=== PATIENT | female | born 2000 | race American Indian/Alaskan Native ===

== ENCOUNTER 2020-06-28 23:27 | Inpatient (IN) | payer BC, MEDICAID ==
[2020-06-29] MEDS ORDERED: HYDROcodone/ACETAMINOPHEN 10-325MG TAB PO PRN (01:27)
--- NOTE | 2020-06-29 02:33 | History and Physical Report ---
History of Present Illness Date of examination: 06/29/20 Date of admission: 06/29/2020 Chief complaint: my water broke; I am having an outbreak History of present illness: Pt presents c/o losing mucus plug and as per triage nurse shows signs of SROM with possible mec. Pt also has been in triage for several hours being monitored for cervical change and has had dilation to 2cm form 1cm. 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 While no visible lesions are seen pt state her sx are typical for an outbreak for her. I advised of need for c/s for possible hsv 2 outbreak. Pt expressed understanding stating this is what she was counseled in the office. EDC Confirmation: 06/28/2020 Gestational Age: 19 4/7 weeks Past History : 1 Term Births: 0 Premature Births: 0 Living Children: 0 Para: 0 Mult. Births: 0 Prev : 0 Prev. attempt? 0 Aborta: 0 Elect. Ab: 0 Spont. 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 of genital herpes: yes Partner hx. of genital herpes: no Rash, Viral, or Febrile illness since last LMP? no Varicella/Chicken Pox Status: Immunized Genetic History Congenital Heart Defect: Mom: no Dad: no Jeanmarie Disease: Mom: no Dad: no Thalassemia Mom: no Dad: no Neural Tube Defect Mom: no Dad: no Down's Syndrome Mom: no Dad: no Brady-Sachs Mom: no Dad: no Sickle Cell Disease/Trait Mom: no Dad: no Hemophilia Mom: no Dad: no Muscular Dystrophy Mom: no Dad: no Cystic Fibrosis Mom: no Dad: no [place] Chorea Mom: no Dad: no Mental Retardation Mom: no Dad: no Fragile X Mom: no Dad: no Other Genetic/Chromosomal Disorder Mom: yes Dad: no Comments: SMA carrier Child w/other defect Mom: no Dad: no Enviromental Exposures Xray Exposure: no Medication, drug, or alcohol use since LMP: no Chemical/Other Exposure: no Exposure to Cat Liter: no Hx of Parvovirus (Fifth Disease): no Occupational Exposure to Children: none Current Allergies: No known allergies Laboratory Results Past History Past Medical History: asthma, other (hsv2) Past Surgical History: no surgical history Social history: no significant social history, single - Obstetrical History Expected Date of Delivery: 06/28/20 Actual Gestation: 40 Week(s) 1 Day(s) : 1 Medications and Allergies Allergies Allergy/AdvReac Type Severity Reaction Status Date / Time No Known Allergies Allergy Verified 06/29/20 01:31 Active Meds: Active Medications Hydrocodone Bitart/Acetaminophen (Medon 10/325) 1 each PO Q4H PRN PRN Reason: Pain, Moderate (4-6) - Vital Signs Vital signs: Vital Signs Temp Pulse Resp BP Pulse Ox 98.3 F 101 H 20 113/71 100 06/28/20 23:49 06/28/20 23:49 06/28/20 23:49 06/28/20 23:49 06/28/20 23:49 Temp Pulse Resp BP Pulse Ox 98.3 F 70 20 101/62 100 06/28/20 23:49 06/29/20 01:50 06/28/20 23:49 06/29/20 01:09 06/29/20 01:50 - Physical Exam Lungs: Positive: Normal air movement Abdomen: Positive: normal appearance, normal bowel sounds Genitourinary (Female): Positive: normal external genitalia, normal perenium, other (no lesions noted as per triage nurse) Results All other labs normal. Assessment and Plan - Patient Problems (1) 40 weeks gestation of Current Visit: Yes Status: Acute (2) HSV (herpes simplex virus) infection Current Visit: Yes Status: Acute Plan to address problem: -with SROM and latent labor present will proceed with primary c/s as pt c/o acitve out break. no visible lesions noted but pt is symptomatic -all risk, benefits and alternatives d/w pt and questions were encouraged. Pt expressed no questions at this time. (3) SROM (spontaneous rupture of membranes) Current Visit: Yes Status: Acute Plan to address problem: -?SROM witll proceed with primary c/s due to active hsv 2 outbreak -pt expressed understanding and agrees with plan of care.
[2020-06-29] MEDS ORDERED: FAMOTIDINE 20 MG/2 ML INJ IV ONE (02:42)
[2020-06-29] MEDS ORDERED: METOCLOPRAMIDE 10 MG/2 ML INJ IV ONE (02:42)
[2020-06-29] MEDS ORDERED: BICITRA ORAL LIQD 30ML PO ONE (02:42)
[2020-06-29] MEDS ORDERED: LACTATED RINGERS 1,000 ML IV SCH (03:00)
[2020-06-29] MEDS ORDERED: ceFAZolin/Water 2 GM/20 ML 2 GM/20 ML SYRINGE IV NR (03:00)
[2020-06-29] MEDS ORDERED: OXYTOCIN 20 UNIT/1000ML DRIP 20 UNITS/1,000 ML BAG IV SCH ×2 (03:00→06:00)
[2020-06-29 03:02] LABS: Basophils % (Auto) 0.4 % (0.0-1.8); Eosinophils # (Auto) 0.1 K/mm3 (0.0-0.4); Eosinophils % (Auto) 0.9 % (0.0-4.3); Lymphocytes # (Auto) 2.1 K/mm3 (1.2-5.4); Lymphocytes % (Auto) 25.4 % (13.4-35.0); Mean Corpuscular HGB Conc 37 % (30-34); Mean Corpuscular Volume 86 fl (79-97); Monocytes # (Auto) 0.8 K/mm3 (0.0-0.8); Monocytes % (Auto) 9.5 % (0.0-7.3); Platelet Count 200 K/mm3 (140-440); Red Blood Count 4.31 M/mm3 (3.65-5.03); Red Cell Distribution Width 13.7 % (13.2-15.2)
[2020-06-29] MEDS ORDERED: KETOROLAC 30 MG/1 ML INJ ONE (03:10)
[2020-06-29] MEDS ORDERED: OXYTOCIN 10 UNIT/1 ML INJ ONE (03:10)
[2020-06-29] MEDS ORDERED: DEXMEDETOMIDINE 200 MCG/2 ML VIAL IV ONE (03:10)
[2020-06-29] MEDS ORDERED: ONDANSETRON 4 MG/2 ML INJ ONE (03:10)
[2020-06-29] MEDS ORDERED: BUPIVACAINE/PF (0.5%) 5 MG/1 ML 30 ML VIAL INFILTRATI ONE (03:18)
[2020-06-29 03:20] LABS: Hematocrit 37.2 % (30.3-42.9); Hemoglobin 13.6 gm/dl (10.1-14.3)
[2020-06-29] MEDS ORDERED: NalbUPHINE 10 MG/1 ML INJ IV PRN (03:21)
[2020-06-29] MEDS ORDERED: NALOXONE 0.4 MG/1 ML INJ IV PRN ×2 (03:21→05:15)
[2020-06-29] MEDS ORDERED: PROMETHAZINE 25 MG TAB PO PRN (03:21)
[2020-06-29] MEDS ORDERED: ONDANSETRON 4 MG/2 ML INJ IV PRN (03:21)
[2020-06-29] MEDS ORDERED: diphenhydrAMINE 50 MG/ML VIAL IV PRN (03:21)
[2020-06-29] MEDS ORDERED: PROMETHAZINE 25 MG RECT SUPP PR PRN (03:21)
--- NOTE | 2020-06-29 03:23 | Anesthesia Consultation ---
Anesthesia Consult and Med Hx Date of service: 06/29/20 - Airway Anesthetic Teeth Evaluation: Good ROM Head & Neck: Adequate Mental/Hyoid Distance: Adequate Mallampati Class: Class II Intubation Access Assessment: Probably Good - Pulmonary Exam CTA: Yes - Cardiac Exam Cardiac Exam: RRR - Pre-Operative Health Status ASA Pre-Surgery Classification: ASA3 Proposed Anesthetic Plan: Spinal Nerve Block: TAP - Pulmonary Hx Smoking: Yes (THC) Hx Asthma: Yes (last attack during carries inhaler) COPD: No Hx Pneumonia: No Hx Sleep Apnea: No - Cardiovascular System Hx Hypertension: No - Central Nervous System Hx Seizures: No Hx Psychiatric Problems: Yes (dx anxiety and depression no meds) - Gastrointestinal Hx Gastroesophageal Reflux Disease: No - Endocrine Hx Renal Disease: No Hx End Stage Renal Disease: No Hx Hypothyroidism: No Hx Hyperthyroidism: No - Hematic Hx Anemia: No Hx Sickle Cell Disease: No - Other Systems Hx Alcohol Use: No
--- NOTE | 2020-06-29 03:24 | Anesthesia Day of Surgery ---
Anesthesia Day of Surgery - Day of Surgery Patient Examined: Yes Patient H&P Reviewed: Yes Patient is NPO: Yes Beta Blockers: No Cardiac Clearance: No Pulmonary Clearance: No Trevor's Test: N/A
--- NOTE | 2020-06-29 03:48 | Progress Note ---
Spinal Anesthesia Block - Spinal Anesthesia Block Start Time: 03:32 Stop Time: 03:42 Performed by:: YEVGENIY COLLINS (Silva Montoyae ARACELY) Procedure: Spinal anesthesia block is being performed for [C/S]. H&P, labs have been reviewed. Patient's questions and concerns have been answered. Informed consent has been performed. Timeout has was performed. Patient in sitting position on side of bed. Sterile prep and drape was performed. 3 mL 1% li docaine skin wheal at L [3]-L [4]. Needle introducer advanced. 25-gauge spinal needle advanced, [+] CSF [-] blood. [Marcaine 10.5mg and Precedex 10mcg] Spinal dose was given. All needles removed. Patient tolerated procedure well.
[2020-06-29] MEDS ORDERED: PHENYLEPHRINE/NS 1,000 MCG/10 ML SYRINGE (OR USE) IV ONE ×2 (03:51→04:39)
[2020-06-29] MEDS ORDERED: KETAMINE/STERILE WATER 50 MG/ML SYRINGE ONE (04:33)
[2020-06-29] MEDS ORDERED: WITCH HAZEL/ GLYCERIN PAD TP PRN (05:15)
[2020-06-29] MEDS ORDERED: LANOLIN/ZINC/DIMETHICONE (LANSINOH) 7 GM TP PRN (05:15)
--- NOTE | 2020-06-29 05:19 | Operative Report ---
Operative Report Operative Report: Date of procedure: 06/29/2020 Pre-operative diagnosis: 40 and 1 weeks gestation Spontaneous rupture of membranes Meconium Latent labor Active HSV-2 outbreak Post-operative diagnosis: Same plus nuchal and body cord x1 Procedure name(s): Primary low transverse section via Pfannenstiel skin incision Surgeon: Dr. Christine Epic Cupid Analyst: DANIELLE Anesthesia: Spinal EBL: 800 mL Urine output: 100 mL of clear urine out at the end of the procedure Fluids: 2400 mL Findings: Liveborn female weight 6 pounds 5 ounces Apgars of 8 and 9 at 1 and 5 minutes Grossly normal fallopian tubes and ovaries bilaterally Normal uterus Meconium stained fluid Nuchal cord x1 easily reduced body cord x1 easily reduced Indications: Patient presented with complaints of spontaneous rupture of membranes and signs of active herpes outbreak. Patient was examined and noted to have cervical change as well. Patient was advised of risk of transmission to the baby. Patient was advised of need for primary section. All risks benefits and alternatives were discussed with the patient including the risk for future sections. Procedure: Patient was taking to the operating room. Patient was then prepped and draped in sterile fashion after anesthesia was found to be adequate. A low transverse skin incision was made with the scalpel and carried down to the underlying layer of fascia with the Bovie. The fascia was then incised in the midline and this incision was extended bilaterally with the Bovie. The superior aspect of the fascia was grasped with Gamal clamps tented upward and dissected off of the anterior rectus muscles with the scalpel. In similar fashion the inferior aspect of the fascia was grasped with Gamal clamps tented upward and dissected off of the anterior rectus muscles. The rectus muscles were then bluntly divided in the midline. The peritoneum was identified and entered into sharply. The Maxwell retractor was placed. The bladder blade was placed. The bladder blade was replaced. A lower transverse uterine incision was made with the scalpel and extended bilaterally with the bandage scissors. Entry into the uterus yielded meconium-stained fluid. The 's head was then delivered atraumatically. Nuchal cord x1 was easily reduced. The anterior shoulder and rest of delivered without difficulty. Body cord x1 was easily reduced. The umbilical cord was clamped x2. The cord was cut. The infant was then placed in sterile bassinet. [The cord blood was collected.] The placenta was manually extracted in its entirety. The uterus was exteriorized and cleared of all clots and debris. The uterine incision was closed using 0 Vicryl in a running locking fashion. A second imbricating layer of the same suture was then created. The posterior cul-de-sac was copiously irrigated. The uterus was returned to the abdomen. The gutters were also irrigated. The anterior rectus muscles were reapproximated using 3-0 Vicryl. The anterior rectus fascia was reapproximated using 0 Vicryl in a running fashion. The subcuticular fat was r eapproximated using 2-0 Vicryl in a running fashion. The skin was reapproximated with 4-0 Monocryl in a subcuticular stitch. The patient tolerated the procedure well. Sponge lap and needle counts were all correct x3. Patient was taken to the recovery room awake and in stable condition.
--- NOTE | 2020-06-29 06:00 | Progress Note ---
Regional Anesthesia Block - Regional Anesthesia Block Start Time: 05:22 Stop Time: 05:35 Performed By:: YEVGENIY COLLINS (Silva JESSICA) Procedure: Patient consented for TAP block for post surgical pain management. Patient identified, monitors placed, and time out performed. Mid axillary TAP identified bilaterally via ultrasound. Skin prepped bilaterally with [chlorhexidine] and [20g stimuplex] needle advanced to the TAP. 30ml [Marcaine 0.25% with 25mcg Precedex and Decadron 4mg] injected under ultrasound guidance on the [left] side. 30ml [Marcaine 0.25% with 25mcg Precedex and Decadron 4mg] injected under ultrasound guidance on the [right] side.
[2020-06-29] MEDS: HYDROmorphone 1 MG/1 ML INJ IV PRN ×3 (09:35→18:42)
[2020-06-29] MEDS: D5W/LACTATED RINGERS 1,000 ML IV SCH ×2 (10:46→18:42)
[2020-06-29] MEDS: ceFAZolin/NS 1 GM/50 ML 1 GM/50 ML BAG IV SCH ×2 (10:52→20:34)
--- NOTE | 2020-06-29 12:32 | Event Note ---
Date: 06/29/20 s/p section. mom and pt's mom resting well, baby in bassinet resting comfortably. no complaints or concerns at present. assessment completed, clear liquids at bedside. pt tolerating well. support given. Incision D&I. pt to ambulate @1600. no flatus at present. encouraged to ambulate, turn cough and deep breathe; use of incentive spirometer observed x10 to 2000ml. zelaya draining to bedside clear yellow urine. lungs clear at present in all four quadrants. abdomen soft. palpated uterine tenderness s/p C/S, expe cted outcome and will continue to monitor. fundus firm midline and 2 fingerbreaths below umbilicus. scant lochia. anticipate discharge and full recovery.
--- NOTE | 2020-06-29 15:15 | Post Anesthesia Evaluation ---
- Post Anesthesia Evaluation Patient Participated: Yes Airway Patent: Yes Stable Respiratory Function: Yes Nausea/Vomiting: No Temp > 96.8F: Yes Pain Manageable: Yes Adequeate Hydration: Yes Anesthesia Complications: No Block Receding Appropriately: Yes Patient on Ventilator: No
[2020-06-29] MEDS: SIMETHICONE 80 MG CHEW TAB PO PRN ×2 (15:54→21:50)
[2020-06-29 17:41] LABS: Hematocrit 36.1 % (30.3-42.9); Hemoglobin 12.2 gm/dl (10.1-14.3)
[2020-06-29] MEDS ORDERED: MAGNESIUM HYDROXIDE (MOM) ORAL LIQD UDC PO PRN (17:53)
[2020-06-29] MEDS: HYDROcodone/ACETAMINOPHEN 5-325 MG TAB PO PRN (22:01)
[2020-06-30] MEDS: HYDROcodone/ACETAMINOPHEN 5-325 MG TAB PO PRN ×3 (03:57→14:20)
[2020-06-30] MEDS ORDERED: HYDROcodone/ACETAMINOPHEN 5-325 MG TAB PO PRN (05:00)
--- NOTE | 2020-06-30 07:59 | Progress Note ---
Assessment and Plan S/p day 1 patient doing well up ambulating to BR, Voiding and passing flatus progressing as planned VSS Baby bottle feeding with grandmother at bedside went over baby education Anticipate discharge 07/01/2020 Ulises Mcnair-MARTA Coughlin/ Steve Wolf CNM - Patient Problems (1) delivery delivered Current Visit: Yes Status: Acute Plan to address problem: continue postop pathway Subjective - Subjective Date of service: 06/30/20 Principal diagnosis: postop day #1 S/P Primary Patient reports: appetite normal, voiding normally, pain well controlled, flatus, ambulating normally : doing well, bottle feeding (Patient also desires to breastfeed ) Objective - Vital Signs Latest vital signs: Vital Signs Temp Pulse Resp BP BP Pulse Ox 06/30/20 00:00 98.8 F 77 16 119/78 06/29/20 20:08 98.0 F 72 18 126/69 98 06/29/20 18:42 20 06/29/20 16:51 97.7 F 60 20 135/77 99 06/29/20 13:43 18 06/29/20 11:58 97.5 F L 66 20 116/69 97 Intake and Output 06/29/20 06/29/20 06/30/20 15:59 23:59 07:59 Intake Total 170 1351.667 300 Output Total 800 1000 Balance -630 351.667 300 Intake: IV 50 991.667 ANCEF/NS 1 GM/50 ML 1 gm 50 In 50 ml @ 100 mls/hr IV Q8H MAYA Rx#:[id number] D5lr 1,000 ml @ 125 mls/ 991.667 hr IV DIRECT MAYA Rx#: [id number] Oral 120 360 Intake, Free Water 300 Output: Urine 800 1000 Indwelling Catheter 800 Void 1000 Other: Total, Intake Amount 120 120 Total, Output Amount 800 600 # Voids Void 1 1 - Exam Breasts: Present: normal Cardiovascular: Present: Regular rate Lungs: Present: Clear to auscultation, Normal air movement Abdomen: Present: normal appearance, soft, tenderness (Tenderness expected post ), normal bowel sounds Vulva: both: normal Uterus: Present: normal, firm, fundal height at umbilicus Extremities: Present: normal Deep Tendon Reflex Grade: Normal +2 Incision: Present: normal, dry, intact - Labs Labs: H&H 12.2 and 36.1
[2020-06-30] MEDS: IBUPROFEN 800 MG TAB PO PRN ×3 (10:11→23:05)
[2020-07-01] MEDS: IBUPROFEN 800 MG TAB PO PRN (06:13)
--- NOTE | 2020-07-01 06:31 | Discharge Summary ---
Providers - Providers Date of Admission: 06/29/20 01:27 Date of discharge: 07/01/20 (pt desires d/c) Attending physician: PING PAINTING 06/30/20 08:21 Consult to Merchandise Marker [CONS] Urgent Reason For Exam: Primary care physician: PING PAINTING Hospitalization Reason for admission: IUP at term, other (HSV2 outbreak) Delivery: Procedure: primary low transverse Episiotomy: none Laceration: none Incision: normal, dry, intact Other procedures: none complications: none Discharge diagnosis: IUP at term delivered [place] baby: female Hospital course: uncomplicated section Pt resting No c/o voiced with relation to surgery. Pt does c/o enlarging lump under left arm, she states it has been there since prior to . Mass is approx the size of small orange. Keflex po BID X 7 days. Will f/u in office @ postop visit. VSS fundus below umb Lochia scant Incision D&I H&H stable No s/sx of anemia. Doing well s/p c/s P: d/c today with instructions RTO 1 week. RX given @ d/c Condition at discharge: Good Disposition: DC-01 TO HOME OR SELFCARE - Discharge Diagnoses (1) delivery delivered Status: Acute Comment: RTO 1 week postop (2) HSV (herpes simplex virus) infection Status: Acute Comment: Continue Valtrex after d/c (3) Lump in armpit Status: Acute Qualifiers: Laterality: left Qualified Code(s): R22.32 - Localized swelling, mass and lump, left upper limb Comment: D/C home on Keflex Will re-eval @ postop visit Plan - Discharge Medications Prescriptions: Docusate Sodium [Colace] 100 mg PO BID PRN #60 capsule PRN Reason: Constipation Lidocain2.5%/Prilocai2.5% [Emla] 2 gm TP ONCE #1 tube Ferrous Sulfate [Feosol 325 MG tab] 325 mg PO QDAY #60 tablet Ibuprofen [Motrin 800 MG tab] 800 mg PO Q8HR PRN #30 tablet PRN Reason: Pain, Moderate (4-6) oxyCODONE /ACETAMINOPHEN [Percocet 5/325] 1 tab PO Q4HR #30 tab - Provider Discharge Summary Activity: routine, no sex for 6 weeks, no heavy lifting 4 weeks, no strenuous exercise Diet: routine Instructions: routine Additional instructions: [] Smoking cessation referral if applicable(refer to patient education folder for contact #) [] Refer to [facility]'s [facility] Booklet Call your doctor immediately for: * Fever > 100.5 * Heavy vaginal bleeding ( >1 pad per hour) * Severe persistent headache * Shortness of breath * Reddened, hot, painful area to leg or breast * Drainage or odor from incision. * Keep incision clean and dry at all times and follow doctor's instructions regarding bathing/showering - Follow up plan Follow up: PING PAINTING MD [Primary Care Provider] - 7 Days (Congratulations! Please call [phone] to schedule your postoperative appointment in 1 week. Take medications as prescribed. Keflex one pill twice daily. Warmer compresses to lump under left arm. You should not drive while taking any prescription medications for pain. Showers only no tub baths. Keep incision clean and dry. Call with any concerns.)
[2020-07-01 12:21] VITALS: BP 121/79
== END 2020-07-01 13:37 | disposition home or self-care (01) | DRG 788 ==
LOC: TRG 23:27 → APU 23:43 → OBSVTOIN 06-29 01:27 → TRG 06-29 01:27 → OB 06-29 09:02
PROVIDERS: ADMIT Obstetrics & Gynecology; ATTEND Obstetrics & Gynecology
PROC: 10D00Z1 Extraction of Products of Conception, Low, Open Approach (ICD-10-PCS; principal; 2020-06-29)
PROC: 3E0234Z Introduction of Serum, Toxoid and Vaccine into Muscle, Percutaneous Approach (ICD-10-PCS; 2020-06-29)
DX: O98.52 Other viral diseases complicating childbirth (principal); O77.0 Labor and delivery complicated by meconium in amniotic fluid; O99.52 Diseases of the respiratory system complicating childbirth; B00.9 Herpesviral infection, unspecified; O99.344 Other mental disorders complicating childbirth; J45.909 Unspecified asthma, uncomplicated; O69.81X0 Labor and delivery complicated by cord around neck, without compression, not applicable or unspecified; O99.72 Diseases of the skin and subcutaneous tissue complicating childbirth; F32.9 Major depressive disorder, single episode, unspecified; R22.32 Localized swelling, mass and lump, left upper limb; Z82.49 Family history of ischemic heart disease and other diseases of the circulatory system; Z90.49 Acquired absence of other specified parts of digestive tract; Z3A.40 40 weeks gestation of pregnancy; Z37.0 Single live birth; O26.893 Other specified pregnancy related conditions, third trimester; Z67.21 Type B blood, Rh negative
CPT/HCPCS: 36415; 85014; 85018; 85025; 85461; 86592; 86762; 86850; 86870; 86900; 86901; 87806; 88307; G0378; A6250; J0690; J1170; J1885; J2370; J2405; J2590; J2765; J2790; J3490; J7121; U0003-CS

== ENCOUNTER 2022-06-01 10:13 | Inpatient (IN) | payer BC, MEDICAID ==
[2022-06-01 12:51] LABS: Hematocrit 30.7 % (30.3-42.9); Hemoglobin 10.7 gm/dl (10.1-14.3); Mean Corpuscular HGB Conc 35 % (30-34); Mean Corpuscular Volume 81 fl (79-97); Platelet Count 178 K/mm3 (140-440); Red Blood Count 3.79 M/mm3 (3.65-5.03); Red Cell Distribution Width 12.9 % (13.2-15.2)
[2022-06-01 13:02] LABS: Amorphous Crystals,Urine 1+
[2022-06-01 13:11] LABS: Alanine Aminotransferase 9 units/L (7-56); Uric Acid 3.4 mg/dL (3.5-7.6)
[2022-06-01 13:19] LABS: Color,Urine Straw (Yellow)
--- NOTE | 2022-06-01 13:22 | History and Physical Report ---
History of Present Illness Date of examination: 06/01/22 Date of admission: 06/01/2022 Chief complaint: Elevated blood pressures in the office History of present illness: Pt is a @ 38.6wks who presented to her appointment today and was found to have blood pressures of 150's/100's. She was sent to triage for evaluation for Pre-eclampsia. Her blood pressures continued to be elevated, with 2 in the severe range. Decision was made for admission. This she has been positive for Chlamydia X2, and Gonorrhea X1 with the most recent positive testing for both on 05/26. Her has otherwise been uncomplicated. EDC Confirmation: 06/09/2022 Gestational Age: 38.6 weeks on admission Past History : 2 Term Births: 1 Premature Births: 0 Living Children: 1 Para: 1 Mult. Births: 0 Prev : 0 Prev. attempt? 0 Aborta: 0 Elect. Ab: 0 Spont. Ab: 0 Ectopics: 0 # 1 Delivery date: 06/29/2020 Weeks Gestation: 40.1 Delivery type: Anesthesia type: SPINAL Delivery location: [facility] Sex: female weight: 6.31 Name: CARMELLA Comments: ACTIVE HSV2 NUCHAL AND BODY CORDS RH NEGATIVE MECONIUM Past Medical History: Reviewed history from 08/19/2020 and no changes required: Asthma - managed by pulmonology HSV Past Surgical History: Reviewed and updated today: Tonsillectomy : 2019 Risk Factors: Smoked Tobacco Use: Never smoker Smokeless Tobacco Use: Never Counseled to Quit/Cut Down: yes Passive Smoke Exposure: no HIV High Risk Behavior: no Caffeine Use: 1 drinks per day Exercise: no Exercise Counseling: yes 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 % Sun Exposure: occasionally Family History Risk Factors: Family History of MS in 1 Female Relative Age < 65: no Family History of MS in 1 Male Relative Age < 55: no No Dietary Counseling Reason: pn yes Alcohol Use: no Drug Use: no Past Medical History Anesthesia Complications: negative Anemia: negative Autoimmune Disorder: negative Bleeding Disorder: negative Blood Transfusions: negative Breast Disease: negative Diabetes: negative Heart Disease: negative Hypertension: negative Hepatitis/Liver Disease: negative Kidney Disease/UTI: negative Neurologic/Epilepsy/Migraines: negative Phlebitis/Varicosities: negative Psychiatric: negative Pulmonary Disease/Asthma: negative Thyroid Disease: negative Hospitalizations: negative 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 of genital herpes: yes Partner hx. of genital herpes: no Rash, Viral, or Febrile illness since last LMP? no Varicella/Chicken Pox Status: Unknown TB Risk: no Genetic History Congenital Heart Defect: Mom: no Dad: no Jeanmarie Disease: Mom: no Dad: no Thalassemia Mom: no Dad: no Neural Tube Defect Mom: no Dad: no Down's Syndrome Mom: no Dad: no Brady-Sachs Mom: no Dad: no Sickle Cell Disease/Trait Mom: no Dad: no Hemophilia Mom: no Dad: no Muscular Dystrophy Mom: no Dad: no Cystic Fibrosis Mom: no Dad: no Hutchinson Chorea Mom: no Dad: no Mental Retardation Mom: no Dad: no Fragile X Mom: no Dad: no Other Genetic/Chromosomal Disorder Mom: no Dad: no Child w/other defect Mom: no Dad: no Enviromental Exposures Xray Exposure: no Medication, drug, or alcohol use since LMP: no Chemical/Other Exposure: no Exposure to Cat Liter: no Hx of Parvovirus (Fifth Disease): no Occupational Exposure to Children: none Active Medications: VALTREX 1 GM ORAL TABLET (VALACYCLOVIR HCL) Take on tablet by mouth once a day for 5 days. 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 Family/Genetic History: none Social history: no significant social history - Obstetrical History Expected Date of Delivery: 06/09/22 Actual Gestation: 38 Week(s) 6 Day(s) : 2 Para: 1 Hx # Term Pregnancies: 1 Number of Pregnancies: 0 Spontaneous Abortions: 0 Induced : 0 Number of Living Children: 1 Medications and Allergies Allergies Allergy/AdvReac Type Severity Reaction Status Date / Time No Known Allergies Allergy Verified 06/29/20 01:31 Home Medications Medication Instructions Recorded Confirmed Last Taken Type Docusate Sodium [Colace] 100 mg PO BID PRN #60 capsule 06/29/20 Unknown Rx Ferrous Sulfate [Feosol 325 MG tab] 325 mg PO QDAY #60 tablet 06/29/20 Unknown Rx Ibuprofen [Motrin 800 MG tab] 800 mg PO Q8HR PRN #30 tablet 06/29/20 Unknown Rx Lidocain2.5%/Prilocai2.5% [Emla] 2 gm TP ONCE #1 tube 06/29/20 Unknown Rx oxyCODONE /ACETAMINOPHEN [Percocet 1 tab PO Q4HR #30 tab 06/29/20 Unknown Rx 5/325] Valacyclovir HCl [Valacyclovir] 1,000 mg PO QDAY #30 tablet 07/01/20 Unknown Rx cephALEXin [Keflex] 500 mg PO Q12HR 7 Days #14 cap 07/01/20 Unknown Rx Review of Systems All systems: negative - Vital Signs Vital signs: Vital Signs Pulse Pulse Ox 93 H 98 06/01/22 11:04 06/01/22 11:04 Temp Pulse Resp BP Pulse Ox 98.2 F 90 20 151/105 97 06/01/22 11:41 06/01/22 13:20 06/01/22 11:41 06/01/22 13:20 06/01/22 13:19 Pt denies TELLES, blurred vision, spots before her eyes, chest pain, shortness of breath, and upper abdominal pain. - Physical Exam Breasts: Positive: deferred Cardiovascular: Normal S1, Normal S2 Lungs: Positive: Clear to auscultation Abdomen: Positive: normal appearance, soft Uterus: Positive: enlarged (Normal for 38 week gestation. ) Extremities: Positive: normal Deep Tendon Reflex Grade: Normal +2 - Obstetrical FHR: category 1 Uterine Contraction Monitor Mode: External Uterine Contraction Pattern: Absent Results Result Diagrams: 06/01/22 12:41 06/01/22 12:41 Abnormal lab results 06/01/22 06/01/22 06/01/22 Range/Units 12:41 12:41 Unknown MCHC 35 H (30-34) % RDW 12.9 L (13.2-15.2) % Uric Acid 3.4 L (3.5-7.6) mg/dL Lactate Dehydrogenase 203 H (91-180) units/L Urine WBC (Auto) 13.0 H (0.0-6.0) /HPF All other labs normal. GBS NEGATIVE HBsAg Screen Negative Negative *1 RPR Non Reactive Non Reactive *2 Rubella Antibodies, IgG 1.69 index Immune >0.99 *3 Non-immune <0.90 Equivocal 0.90 - 0.99 Immune >0.99 ABO Grouping B *4 Rh Factor Negative *5 Please note: Prior records for this patient's ABO / Rh type are not available for additional verification. Antibody Screen Negative Negative *6 Tests: (3) HB Solu + Rflx Frac ([id number]) Hemoglobin (Hgb) Solubility Negative Negative *34 Tests: (4) HIV Ab/p24 Ag with Reflex ([id number]) HIV Ab/p24 Ag Screen Non Reactive Non Reactive *35 HIV Negative HIV-1/HIV-2 antibodies and HIV-1 p24 antigen were NOT detected. There is no laboratory evidence of HIV infection. Tests: (5) HCV Antibody reflex to SOO ([id number]) HCV Ab <0.1 s/co ratio 0.0-0.9 *36 Tests: (6) Interpretation: ([id number]) ! Interpretation: SPRCS *37 Negative Not infected with HCV, unless recent infection is suspected or other evidence exists to indicate HCV infection. Effective February 02, 2022 HCV Antibody reflex to SOO will be made non-orderable. This will affect any Custom Profile that includes [id number] HCV Antibody reflex to SOO. [facility] offers order code [id number] HCV Antibody RFX to Quant PCR as an alternative. Assessment and Plan A: 21 y.o. @ 38.6 wks, elevated blood pressures, previous , Rh negative, + Chlamydia and Gonorrhea. - Patient Problems (1) 38 to 41 weeks gestation of Current Visit: Yes Status: Acute Plan to address problem: Continuous EFM to monitor status. (2) Previous delivery, antepartum Current Visit: Yes Status: Acute Plan to address problem: Pre op medications ordered. NPO ordered. (3) Elevated blood pressure reading in office with diagnosis of hypertension Current Visit: Yes Status: Acute Plan to address problem: Admit to labor and delivery. Initiate IV. Draw admission and Pre-eclampsia labs. - Labs resulted have been WNL. - Awaiting P/C ratio at the time of this H&P. - Once all labs result, will make decision regarding magnesium administration. - Magnesium labs ordered. - Will consider anti-hypertensives PO and IV if persistent severe range blood pressures. Strict I&O's. Monitor blood pressures. - If persistent severe range, will order magnesium infusion and Crabtree Catheter placement. Monitor for s/sx of Pre-eclampsia. (4) Rh negative status during in third trimester Current Visit: Yes Status: Acute Plan to address problem: Cord blood work up after delivery. (5) Gonorrhea affecting Current Visit: Yes Status: Acute Qualifiers: Trimester: third trimester Qualified Code(s): O98.213 - Gonorrhea compl icating , third trimester Plan to address problem: Antibiotics ordered. NIKO team to be notified of positive status. (6) Chlamydia infection affecting Current Visit: Yes Status: Acute Qualifiers: Trimester: third trimester Qualified Code(s): O98.813 - Other maternal infectious and parasitic diseases complicating , third trimester; A74.9 - Chlamydial infection, unspecified Plan to address problem: Antibiotics ordered. NIKO team to be notified of positive status.
[2022-06-01] MEDS ORDERED: hydrALAZINE 20 MG/1 ML INJ IV PRN (14:24)
[2022-06-01] MEDS ORDERED: MAGNESIUM SULFATE 4 GM/100 ML BAG IV ONE (15:37)
[2022-06-01] MEDS: LACTATED RINGERS 1,000 ML IV SCH (15:38)
[2022-06-01] MEDS ORDERED: hydrALAZINE 20 MG/1 ML INJ IV ONE (16:11)
[2022-06-01] MEDS ORDERED: fentaNYL 100 MCG/2 ML INJ IV ONE (16:12)
[2022-06-01] MEDS: MAGNESIUM SULFATE 40GM/1000ML 40 GM/1,000 ML BAG IV SCH (17:02)
[2022-06-01 17:09] LABS: Creatinine,Urine 36.3 mg/dL (0.1-20.0); Protein/Creatinine Ratio,Urine 0.77
[2022-06-01] MEDS ORDERED: METOCLOPRAMIDE 10 MG/2 ML INJ IV ONE (18:14)
[2022-06-01] MEDS ORDERED: AZITHROMYCIN/NS 500 MG/250 ML 500 MG/250 ML BAG IV ONE (18:14)
[2022-06-01] MEDS ORDERED: BICITRA ORAL LIQD 30ML PO ONE (18:14)
[2022-06-01] MEDS ORDERED: FAMOTIDINE 20 MG/2 ML INJ IV ONE (18:14)
[2022-06-01] MEDS ORDERED: LACTATED RINGERS 1,000 ML IV SCH (18:15)
[2022-06-01] MEDS ORDERED: ACETAMINOPHEN 500 MG TAB PO PRN (18:17)
[2022-06-01] MEDS ORDERED: AZITHROMYCIN 250 MG TAB PO ONE (18:26)
[2022-06-01] MEDS ORDERED: OXYTOCIN DRIP 30 UNITS/500 ML BAG IV SCH (19:00)
[2022-06-01] MEDS ORDERED: ceFAZolin/Water 2 GM/20 ML 2 GM/20 ML SYRINGE IV NR (19:00)
--- NOTE | 2022-06-01 19:03 | Event Note ---
Date: 06/01/22 Patient seen and evaluated. Voices no complaints at this time. Plan of care discussed. BOP currently mild range. Will schedule for RCS in AM. However, if pressures become severe range and are not able to be controlled, will proceed emergently to OR. Will start Labetalol 200 mg BID. Continue MgSO4.
[2022-06-01] MEDS ORDERED: BUTALB/ACETAMINOPHEN/CAFFEINE TAB PO PRN (22:40)
[2022-06-02] MEDS: LACTATED RINGERS 1,000 ML IV SCH (01:28)
[2022-06-02] MEDS ORDERED: fentaNYL 100 MCG/2 ML INJ IV ONE (03:12)
[2022-06-02] MEDS ORDERED: METOCLOPRAMIDE 10 MG/2 ML INJ ONE (06:39)
[2022-06-02] MEDS ORDERED: BICITRA ORAL LIQD 30ML ONE (06:39)
[2022-06-02] MEDS ORDERED: FAMOTIDINE 20 MG/2 ML INJ IV ONE (06:40)
[2022-06-02] MEDS ORDERED: ceFAZolin/Water 2 GM/20 ML 2 GM/20 ML SYRINGE IV NR (07:00)
[2022-06-02] MEDS ORDERED: AZITHROMYCIN/NS 500 MG/250 ML 500 MG/250 ML BAG IV ONE (07:00)
[2022-06-02] MEDS ORDERED: ePHEDrine SULFATE 50 MG/1 ML INJ ONE (07:19)
--- NOTE | 2022-06-02 07:42 | Progress Note ---
Assessment and Plan - Patient Problems (1) 39 weeks gestation of Current Visit: Yes Status: Acute (2) Pre-eclampsia during in third trimester, antepartum Current Visit: Yes Status: Acute (3) Previous delivery, antepartum Current Visit: Yes Status: Acute Plan to address problem: Diagnosis explained. Patient desires repeat c/s. Discussed risks, not limited to, bleeding, infection, injury to bowel, bladder, or any surrounding organs. Alternatives with risks and benfits explained. Questions encouraged and answered. She voiced understanding, consent reviewed and signed. (4) Chlamydia infection affecting Current Visit: Yes Status: Acute Qualifiers: Trimester: third trimester Qualified Code(s): O98.813 - Other maternal infectious and parasitic diseases complicating , third trimester; A74.9 - Chlamydial infection, unspecified (5) Gonorrhea affecting Current Visit: Yes Status: Acute Qualifiers: Trimester: third trimester Qualified Code(s): O98.213 - Gonorrhea complicating , third trimester (6) HSV (herpes simplex virus) infection Current Visit: Yes Status: Acute (7) Rh negative status during in third trimester Current Visit: Yes Status: Acute Subjective - Subjective Date of service: 06/02/22 Principal diagnosis: IUP@39 weeks, Preeclampsia, Previous c/s, desires RCS Patient reports: movement normal, no new complaints Objective - Vital Signs Vital Signs: Vital Signs - 12hr 06/01/22 06/01/22 06/01/22 19:46 19:51 19:56 Temperature Pulse Rate 80 82 86 Blood Pressure O2 Sat by Pulse 98 97 98 Oximetry O2 Sat by Pulse Oximetry [ Anterior Bilateral Throughout] 06/01/22 06/01/22 06/01/22 20:01 20:06 20:11 Temperature Pulse Rate 80 74 81 Blood Pressure 132/83 O2 Sat by Pulse 98 98 99 Oximetry O2 Sat by Pulse Oximetry [ Anterior Bilateral Throughout] 06/01/22 06/01/22 06/01/22 20:16 20:21 20:26 Temperature Pulse Rate 78 76 94 H Blood Pressure O2 Sat by Pulse 98 98 97 Oximetry O2 Sat by Pulse Oximetry [ Anterior Bilateral Throughout] 06/01/22 06/01/22 06/01/22 20:31 20:36 20:41 Temperature Pulse Rate 76 88 94 H Blood Pressure O2 Sat by Pulse 98 99 98 Oximetry O2 Sat by Pulse Oximetry [ Anterior Bilateral Throughout] 06/01/22 06/01/22 06/01/22 20:46 20:51 20:55 Temperature Pulse Rate 92 H 88 93 H Blood Pressure 149/95 O2 Sat by Pulse 97 97 Oximetry O2 Sat by Pulse Oximetry [ Anterior Bilateral Throughout] 06/01/22 06/01/22 06/01/22 20:56 20:58 21:01 Temperature Pulse Rate 86 53 L 85 Blood Pressure 145/88 O2 Sat by Pulse 96 86 98 Oximetry O2 Sat by Pulse Oximetry [ Anterior Bilateral Throughout] 06/01/22 06/01/22 06/01/22 21:06 21:09 21:10 Temperature Pulse Rate 76 Blood Pressure 145/88 O2 Sat by Pulse 97 Oximetry O2 Sat by Pulse 98 Oximetry [ Anterior Bilateral Throughout] 06/01/22 06/01/22 06/01/22 21:11 21:16 21:21 Temperature 97.2 F L Pulse Rate 85 73 83 Blood Pressure O2 Sat by Pulse 99 97 97 Oximetry O2 Sat by Pulse Oximetry [ Anterior Bilateral Throughout] 06/01/22 06/01/22 06/01/22 21:26 21:31 21:36 Temperature Pulse Rate 80 88 81 Blood Pressure O2 Sat by Pulse 97 98 97 Oximetry O2 Sat by Pulse Oximetry [ Anterior Bilateral Throughout] 06/01/22 06/01/22 06/01/22 21:41 21:46 21:49 Temperature Pulse Rate 83 92 H 67 Blood Pressure O2 Sat by Pulse 97 98 92 Oximetry O2 Sat by Pulse Oximetry [ Anterior Bilateral Throughout] 06/01/22 06/01/22 06/01/22 21:51 21:56 22:01 Temperature Pulse Rate 85 83 81 Blood Pressure 139/96 O2 Sat by Pulse 97 97 98 Oximetry O2 Sat by Pulse Oximetry [ Anterior Bilateral Throughout] 06/01/22 06/01/22 06/01/22 22:06 22:11 22:16 Temperature Pulse Rate 82 103 H 88 Blood Pressure O2 Sat by Pulse 97 96 98 Oximetry O2 Sat by Pulse Oximetry [ Anterior Bilateral Throughout] 06/01/22 06/01/22 06/01/22 22:21 22:26 22:31 Temperature Pulse Rate 88 81 95 H Blood Pressure O2 Sat by Pulse 98 98 96 Oximetry O2 Sat by Pulse Oximetry [ Anterior Bilateral Throughout] 06/01/22 06/01/22 06/01/22 22:36 22:38 22:41 Temperature Pulse Rate 82 86 77 Blood Pressure 133/86 O2 Sat by Pulse 96 97 Oximetry O2 Sat by Pulse Oximetry [ Anterior Bilateral Throughout] 06/01/22 06/01/22 06/01/22 22:46 22:51 22:56 Temperature Pulse Rate 78 77 79 Blood Pressure O2 Sat by Pulse 97 97 97 Oximetry O2 Sat by Pulse Oximetry [ Anterior Bilateral Throughout] 06/01/22 06/01/22 06/01/22 23:01 23:06 23:11 Temperature Pulse Rate 78 76 73 Blood Pressure 134/88 O2 Sat by Pulse 97 96 98 Oximetry O2 Sat by Pulse Oximetry [ Anterior Bilateral Throughout] 06/01/22 06/01/22 06/01/22 23:16 23:21 23:26 Temperature Pulse Rate 85 89 84 Blood Pressure O2 Sat by Pulse 98 98 98 Oximetry O2 Sat by Pulse Oximetry [ Anterior Bilateral Throughout] 06/01/22 06/01/22 06/01/22 23:31 23:36 23:41 Temperature Pulse Rate 86 77 82 Blood Pressure O2 Sat by Pulse 97 100 99 Oximetry O2 Sat by Pulse Oximetry [ Anterior Bilateral Throughout] 06/01/22 06/01/22 06/01/22 23:46 23:51 23:56 Temperature Pulse Rate 86 90 78 Blood Pressure O2 Sat by Pulse 98 99 99 Oximetry O2 Sat by Pulse Oximetry [ Anterior Bilateral Throughout] 06/02/22 06/02/22 06/02/22 00:01 00:06 00:11 Temperature Pulse Rate 79 72 70 Blood Pressure 126/73 O2 Sat by Pulse 98 98 97 Oximetry O2 Sat by Pulse Oximetry [ Anterior Bilateral Throughout] 06/02/22 06/02/22 06/02/22 00:16 00:21 00:26 Temperature Pulse Rate 70 75 84 Blood Pressure O2 Sat by Pulse 98 97 98 Oximetry O2 Sat by Pulse Oximetry [ Anterior Bilateral Throughout] 06/02/22 06/02/22 06/02/22 00:31 00:36 00:41 Temperature Pulse Rate 75 85 76 Blood Pressure O2 Sat by Pulse 97 98 97 Oximetry O2 Sat by Pulse Oximetry [ Anterior Bilateral Throughout] 06/02/22 06/02/22 06/02/22 00:46 00:51 00:56 Temperature Pulse Rate 81 77 75 Blood Pressure O2 Sat by Pulse 97 97 97 Oximetry O2 Sat by Pulse Oximetry [ Anterior Bilateral Throughout] 06/02/22 06/02/22 06/02/22 01:01 01:05 01:06 Temperature Pulse Rate 80 80 80 Blood Pressure 135/99 137/102 O2 Sat by Pulse 98 99 Oximetry O2 Sat by Pulse Oximetry [ Anterior Bilateral Throughout] 06/02/22 06/02/22 06/02/22 01:11 01:16 01:21 Temperature Pulse Rate 80 92 H 81 Blood Pressure O2 Sat by Pulse 98 98 99 Oximetry O2 Sat by Pulse Oximetry [ Anterior Bilateral Throughout] 06/02/22 06/02/22 06/02/22 01:26 01:31 01:36 Temperature 98.3 F Pulse Rate 94 H 86 91 H Blood Pressure O2 Sat by Pulse 100 98 97 Oximetry O2 Sat by Pulse Oximetry [ Anterior Bilateral Throughout] 06/02/22 06/02/22 06/02/22 01:41 01:46 01:51 Temperature Pulse Rate 85 70 78 Blood Pressure O2 Sat by Pulse 97 97 96 Oximetry O2 Sat by Pulse Oximetry [ Anterior Bilateral Throughout] 06/02/22 06/02/22 06/02/22 01:53 01:56 02:01 Temperature Pulse Rate 77 74 72 Blood Pressure 126/67 O2 Sat by Pulse 94 95 97 Oximetry O2 Sat by Pulse Oximetry [ Anterior Bilateral Throughout] 06/02/22 06/02/22 06/02/22 02:06 02:11 02:16 Temperature Pulse Rate 66 72 71 Blood Pressure O2 Sat by Pulse 98 97 98 Oximetry O2 Sat by Pulse Oximetry [ Anterior Bilateral Throughout] 06/02/22 06/02/22 06/02/22 02:21 02:26 02:31 Temperature Pulse Rate 68 68 72 Blood Pressure O2 Sat by Pulse 96 98 97 Oximetry O2 Sat by Pulse Oximetry [ Anterior Bilateral Throughout] 06/02/22 06/02/22 06/02/22 02:36 02:41 02:46 Temperature Pulse Rate 69 73 83 Blood Pressure O2 Sat by Pulse 97 97 98 Oximetry O2 Sat by Pulse Oximetry [ Anterior Bilateral Throughout] 06/02/22 06/02/22 06/02/22 02:51 02:56 03:01 Temperature Pulse Rate 93 H 88 85 Blood Pressure O2 Sat by Pulse 97 98 97 Oximetry O2 Sat by Pulse Oximetry [ Anterior Bilateral Throughout] 06/02/22 06/02/22 06/02/22 03:02 03:06 03:11 Temperature Pulse Rate 73 79 80 Blood Pressure 140/82 O2 Sat by Pulse 96 98 Oximetry O2 Sat by Pulse Oximetry [ Anterior Bilateral Throughout] 06/02/22 06/02/22 06/02/22 03:16 03:21 03:26 Temperature Pulse Rate 77 84 86 Blood Pressure O2 Sat by Pulse 97 97 97 Oximetry O2 Sat by Pulse Oximetry [ Anterior Bilateral Throughout] 06/02/22 06/02/22 06/02/22 03:31 03:36 03:41 Temperature Pulse Rate 89 79 81 Blood Pressure O2 Sat by Pulse 97 97 97 Oximetry O2 Sat by Pulse Oximetry [ Anterior Bilateral Throughout] 06/02/22 06/02/22 06/02/22 03:46 03:48 03:51 Temperature 98.2 F Pulse Rate 74 84 74 Blood Pressure O2 Sat by Pulse 95 93 95 Oximetry O2 Sat by Pulse Oximetry [ Anterior Bilateral Throughout] 06/02/22 06/02/22 06/02/22 03:56 04:01 04:02 Temperature Pulse Rate 79 80 81 Blood Pressure 140/84 O2 Sat by Pulse 97 95 Oximetry O2 Sat by Pulse Oximetry [ Anterior Bilateral Throughout] 06/02/22 06/02/22 06/02/22 04:06 04:11 04:16 Temperature Pulse Rate 76 77 78 Blood Pressure O2 Sat by Pulse 96 96 96 Oximetry O2 Sat by Pulse Oximetry [ Anterior Bilateral Throughout] 06/02/22 06/02/22 06/02/22 04:21 04:26 04:31 Temperature Pulse Rate 77 83 88 Blood Pressure O2 Sat by Pulse 97 96 96 Oximetry O2 Sat by Pulse Oximetry [ Anterior Bilateral Throughout] 06/02/22 06/02/22 06/02/22 04:36 04:41 04:46 Temperature Pulse Rate 85 75 83 Blood Pressure O2 Sat by Pulse 98 98 97 Oximetry O2 Sat by Pulse Oximetry [ Anterior Bilateral Throughout] 06/02/22 06/02/22 06/02/22 04:51 04:56 05:01 Temperature Pulse Rate 78 77 83 Blood Pressure O2 Sat by Pulse 97 97 97 Oximetry O2 Sat by Pulse Oximetry [ Anterior Bilateral Throughout] 06/02/22 06/02/22 06/02/22 05:04 05:06 05:11 Temperature Pulse Rate 64 70 72 Blood Pressure 109/68 O2 Sat by Pulse 97 97 Oximetry O2 Sat by Pulse Oximetry [ Anterior Bilateral Throughout] 06/02/22 06/02/22 06/02/22 05:16 05:21 05:22 Temperature Pulse Rate 71 74 76 Blood Pressure O2 Sat by Pulse 96 94 95 Oximetry O2 Sat by Pulse Oximetry [ Anterior Bilateral Throughout] 06/02/22 06/02/22 06/02/22 05:26 05:27 05:31 Temperature Pulse Rate 73 71 78 Blood Pressure O2 Sat by Pulse 94 95 94 Oximetry O2 Sat by Pulse Oximetry [ Anterior Bilateral Throughout] 06/02/22 06/02/22 06/02/22 05:36 05:41 05:43 Temperature Pulse Rate 72 73 68 Blood Pressure O2 Sat by Pulse 95 95 94 Oximetry O2 Sat by Pulse Oximetry [ Anterior Bilateral Throughout] 06/02/22 06/02/22 06/02/22 05:46 05:49 05:52 Temperature Pulse Rate 72 70 73 Blood Pressure O2 Sat by Pulse 95 94 95 Oximetry O2 Sat by Pulse Oximetry [ Anterior Bilateral Throughout] 06/02/22 06/02/22 06/02/22 05:57 06:01 06:07 Temperature Pulse Rate 75 79 72 Blood Pressure 109/60 O2 Sat by Pulse 95 95 97 Oximetry O2 Sat by Pulse Oximetry [ Anterior Bilateral Throughout] 06/02/22 06/02/22 06/02/22 06:08 06:11 06:17 Temperature Pulse Rate 80 72 72 Blood Pressure O2 Sat by Pulse 94 98 98 Oximetry O2 Sat by Pulse Oximetry [ Anterior Bilateral Throughout] 06/02/22 06/02/22 06/02/22 06:21 06:26 06:31 Temperature Pulse Rate 81 79 76 Blood Pressure O2 Sat by Pulse 98 99 98 Oximetry O2 Sat by Pulse Oximetry [ Anterior Bilateral Throughout] 06/02/22 06/02/22 06/02/22 06:36 06:41 06:46 Temperature Pulse Rate 87 88 76 Blood Pressure O2 Sat by Pulse 99 96 98 Oximetry O2 Sat by Pulse Oximetry [ Anterior Bilateral Throughout] 06/02/22 06/02/22 06/02/22 06:47 06:51 06:56 Temperature 98.1 F Pulse Rate 89 81 Blood Pressure O2 Sat by Pulse 96 97 Oximetry O2 Sat by Pulse Oximetry [ Anterior Bilateral Throughout] 06/02/22 06/02/22 06/02/22 07:01 07:06 07:11 Temperature Pulse Rate 79 73 84 Blood Pressure 136/94 O2 Sat by Pulse 97 97 98 Oximetry O2 Sat by Pulse Oximetry [ Anterior Bilateral Throughout] 06/02/22 06/02/22 06/02/22 07:16 07:21 07:26 Temperature Pulse Rate 90 103 H 77 Blood Pressure O2 Sat by Pulse 98 96 97 Oximetry O2 Sat by Pulse Oximetry [ Anterior Bilateral Throughout] 06/02/22 06/02/22 07:31 07:36 Temperature Pulse Rate 81 76 Blood Pressure O2 Sat by Pulse 99 99 Oximetry O2 Sat by Pulse Oximetry [ Anterior Bilateral Throughout] - Exam Breasts: deferred Cardiovascular: Regular rate Lungs: Normal air movement - Labs Labs: Abnormal Labs 06/01/22 06/01/22 06/01/22 12:41 12:41 21:52 MCHC 35 H RDW 12.9 L Creatinine 0.5 L Uric Acid 3.4 L Magnesium 3.80 H Lactate Dehydrogenase 203 H Urine WBC (Auto) Urine Creatinine Urine Total Protein 06/01/22 06/01/22 06/02/22 Unknown Unknown 03:44 MCHC RDW Creatinine Uric Acid Magnesium 4.50 H Lactate Dehydrogenase Urine WBC (Auto) 13.0 H Urine Creatinine 36.3 H Urine Total Protein 28 H Laboratory Results - last 24 hr 06/01/22 06/01/22 06/01/22 12:41 12:41 16:28 WBC 4.9 RBC 3.79 Hgb 10.7 Hct 30.7 MCV 81 MCH 28 MCHC 35 H RDW 12.9 L Plt Count 178 Creatinine 0.5 L Estimated GFR > 60 Uric Acid 3.4 L Magnesium AST 16 ALT 9 Lactate Dehydrogenase 203 H Urine Color Urine Turbidity Specific Wilcox (Man) Ur Protein (Man) Ur Ketones (Man) Ur Nitrite (Man) Ur Reducing Substances Urine Bilirubin (Man) Urine Ictotest Leukocyte Esterase (Man) Urine WBC (Auto) Urine RBC (Auto) U Epithel Cells (Auto) Urine RBC (Manual) Amorphous Crystals Urine Creatinine Protein/Creatinin Ratio Urine Total Protein Membranes Rupture Negative Blood Type Antibody Screen Antibody Identification 08/29/22 08/29/22 08/29/22 20:00 21:52 Unknown WBC RBC Hgb Hct MCV MCH MCHC RDW Plt Count Creatinine Estimated GFR Uric Acid Magnesium 3.80 H AST ALT Lactate Dehydrogenase Urine Color Straw Urine Turbidity Clear Specific Wilcox (Man) 1.015 Ur Protein (Man) Negative Ur Ketones (Man) Negative Ur Nitrite (Man) Negative Ur Reducing Substances Not Reportable Urine Bilirubin (Man) Negative Urine Ictotest Not Reportable Leukocyte Esterase (Man) Negative Urine WBC (Auto) 13.0 H Urine RBC (Auto) 5.0 U Epithel Cells (Auto) 11.0 Urine RBC (Manual) Negative Amorphous Crystals 1+ Urine Creatinine Protein/Creatinin Ratio Urine Total Protein Membranes Rupture Blood Type B NEGATIVE Antibody Screen Positive Antibody Identification Anti-D (Passively Aquired) 06/01/22 06/02/22 Unknown 03:44 WBC RBC Hgb Hct MCV MCH MCHC RDW Plt Count Creatinine Estimated GFR Uric Acid Magnesium 4.50 H AST ALT Lactate Dehydrogenase Urine Color Urine Turbidity Specific Wilcox (Man) Ur Protein (Man) Ur Ketones (Man) Ur Nitrite (Man) Ur Reducing Substances Urine Bilirubin (Man) Urine Ictotest Leukocyte Esterase (Man) Urine WBC (Auto) Urine RBC (Auto) U Epithel Cells (Auto) Urine RBC (Manual) Amorphous Crystals Urine Creatinine 36.3 H Protein/Creatinin Ratio 0.77 Urine Total Protein 28 H Membranes Rupture Blood Type Antibody Screen Antibody Identification
[2022-06-02] MEDS ORDERED: SUCCINYLCHOLINE CHLORIDE 200 MG/10 ML INJ MDV ONE (08:25)
[2022-06-02] MEDS ORDERED: propofoL 200 MG/20 ML VIAL IV ONE (08:25)
[2022-06-02] MEDS ORDERED: fentaNYL 100 MCG/2 ML INJ ONE (08:56)
[2022-06-02] MEDS ORDERED: SODIUM CHLORIDE 0.9% 100 ML ONE (09:23)
[2022-06-02] MEDS ORDERED: BUPIVACAINE/PF (0.5%) 5 MG/1 ML 30 ML VIAL INFILTRATI ONE (09:23)
[2022-06-02] MEDS ORDERED: KETOROLAC 30 MG/1 ML INJ ONE (09:23)
[2022-06-02] MEDS ORDERED: MIDAZOLAM 2 MG/2 ML INJ ONE (09:37)
[2022-06-02] MEDS ORDERED: NALOXONE 0.4 MG/1 ML INJ IV PRN ×2 (10:14→11:00)
[2022-06-02] MEDS ORDERED: MORPHINE 4 MG/1 ML INJ IV PRN ×2 (10:14→11:00)
[2022-06-02] MEDS ORDERED: HYDROmorphone 1 MG/1 ML INJ IV PRN ×2 (10:14→12:00)
--- NOTE | 2022-06-02 10:16 | Anesthesia Consultation ---
Anesthesia Consult and Med Hx Date of service: 06/02/22 - Airway Anesthetic Teeth Evaluation: Good ROM Head & Neck: Adequate Mental/Hyoid Distance: Adequate Mallampati Class: Class II Intubation Access Assessment: Good - Pulmonary Exam CTA: Yes - Cardiac Exam Cardiac Exam: RRR - Pre-Operative Health Status ASA Pre-Surgery Classification: ASA2 Proposed Anesthetic Plan: General Nerve Block: Alex Tap - Pulmonary Hx Smoking: Yes (THC) Hx Asthma: Yes (last attack 2020 carries inhaler) Hx Respiratory Symptoms: No SOB: No COPD: No Home Oxygen Therapy: No Hx Pneumonia: No Hx Sleep Apnea: No - Cardiovascular System Hx Hypertension: No Hx Coronary Artery Disease: No Hx Heart Attack/AMI: No Hx Angina: No Hx Percutaneous Transluminal Coronary Angioplasty (PTCA): No Hx Cardia Arrhythmia: No Hx Pacemaker: No Hx Internal Defibrillator: No Hx Valvular Heart Disease: No Hx Heart Murmur: No Hx Peripheral Vascular Disease: No - Central Nervous System Hx Neuromuscular Disorder: No Hx Seizures: No CVA: No Hx Back Pain: No Hx Psychiatric Problems: Yes (dx anxiety and depression no meds) - Gastrointestinal Hx Ulcer: No Hx Gastroesophageal Reflux Disease: No - Endocrine Hx Renal Disease: No Hx End Stage Renal Disease: No Hx Cirrhosis: No Hx Liver Disease: No Hx Insulin Dependent Diabetes: No Hx Non-Insulin Dependent Diabetes: No Hx Thyroid Disease: No Hx Hypothyroidism: No Hx Hyperthyroidism: No - Hematic Hx Anemia: No Hx Sickle Cell Disease: No - Other Systems Hx Alcohol Use: No Hx Substance Use: No Hx Cancer: No Hx Obesity: Yes
--- NOTE | 2022-06-02 10:16 | Anesthesia Day of Surgery ---
Anesthesia Day of Surgery - Day of Surgery Patient Examined: Yes Patient H&P Reviewed: Yes Patient is NPO: Yes Beta Blockers: No Cardiac Clearance: No Pulmonary Clearance: No Trevor's Test: Negative
--- NOTE | 2022-06-02 10:17 | Progress Note ---
Regional Anesthesia Block - Regional Anesthesia Block Start Time: 09:55 Stop Time: 10:05 Performed By:: FAIZAN WEINSTEIN Procedure: During the pre-op interview the patient agreed to and signed a consent for a TAP block for post surgical pain management. After her C/S was completed a time out was performed prior to the start of the procedure. The Trans Abdominal Plane was identified bilaterally via ultrasound. The skin was prepped bilaterally with chlorhexidine and a 22g stimuplex needle was advanced to the area between the internal oblique muscle and the trans abdominal plane. Marcaine 0.25% 30mlwas injected under ultrasound guidance on the left and right side. Negative aspiration every 5mL, There was no change in the patients heart rate or rhythm and the patient tolerated the procedure well. No apparent complications were observed.
--- NOTE | 2022-06-02 10:53 | Operative Report ---
Operative Report Operative Report: Date of operation: 06/02/2022 Pre-operative diagnosis: 1. Intrauterine at 39 weeks gestational age 2. Preeclampsia 3. Previous delivery desires repeat , declines sterilization 4. BMI 36.8 kg/m2 Post-operative diagnosis: 1. Intrauterine at 39 weeks gestational age 2. Preeclampsia 3. Previous delivery desires repeat , declines sterilization 4. BMI 36.8 kg/m2 Procedure name(s): Repeat low transverse uterine incision Surgeon: Alannah Mcgrath MD Shift Nurse Manager: Martín Norris Anesthesia: General endotracheal anesthesia EBL: 1320 mL Urine output: 500 mL of clear urine out at the end of the procedure Fluids: 1500 mL Findings: Liveborn male infant weight 7 Lbs. 0 oz. Apgars of 8 and 9 at one and 5 minutes Indications: See above Procedure: Patient was taking to the operating room. General endotracheal anesthesia was induced. Patient was then prepped and draped in the usual sterile fashion Timeout was performed. Once an appropriate level of anesthesia was noted, a Pfannenstiel incision was made and extended the fascia which was incised and extended lateral direction. The overlying fascia was sharply dissected away from the underlying rectus muscles in the superior inferior direction. The midline was entered bluntly. Bladder blade was placed. Vesicouterine fold was incised with blunt dissection bladder flap was created. A transverse incision was made in the lower uterine segment and extended superolateral direction with finger fractionation. Clear fluid was noted. Infant was delivered from the cephalic, LOP position with vacuum-assisted 1 application required., 50 mg of mercury pressure. Spontaneous cry and exce llent tone. Mouth and nose bulb suctioned. Cord was doubly clamped and cut was given to the resuscitation team present. Placenta was delivered. The uterus was exteriorized and cleaned of any further placental tissue and products of conception. Uterine incision was approximated using 0 Vicryl in a running interlocking stitch followed by further suture of 0 Vicryl in imbricating fashion. When hemostasis was noted the uterus was allowed back in the pelvic cavity. Pelvis was irrigated with warm normal saline. Once hemostasis was noted the rectus muscles were approximated using 0 Vicryl interrupted simple stitches 3. Once hemostasis was noted the fascia was approximated using 0 Vicryl simple running stitch. The incision was irrigated with warm saline, once hemostasis as noted, the subcuticular adipose tissue was reapproximated using 3-0 Vicryl in a simple running fashion. Skin was approximated using 4-0 Vicryl on a Marco needle in a subcuticular manner. Counts were correct x3. Patient tolerated the procedure well, she was taken to recovery room in stable condition.
[2022-06-02] MEDS ORDERED: ONDANSETRON 4 MG/2 ML INJ IV PRN (11:00)
[2022-06-02] MEDS ORDERED: D5W/LACTATED RINGERS 1,000 ML IV SCH (11:00)
[2022-06-02] MEDS ORDERED: fentaNYL-BUPIV 2 MCG/ML-0.125% 200 MCG/100 ML BAG EPIDURAL SCH (11:00)
[2022-06-02] MEDS ORDERED: HYDROCORTISONE 25 MG RECTAL SUPP PR PRN (11:00)
[2022-06-02] MEDS ORDERED: LANOLIN/ZINC/DIMETHICONE (LANSINOH) 7 GM TP PRN (11:00)
[2022-06-02] MEDS ORDERED: SIMETHICONE 80 MG CHEW TAB PO PRN (11:00)
[2022-06-02] MEDS ORDERED: PROMETHAZINE 25 MG TAB PO PRN (11:00)
[2022-06-02] MEDS ORDERED: OXYTOCIN DRIP 30 UNITS/500 ML BAG IV SCH (11:00)
[2022-06-02] MEDS ORDERED: LIDOCAINE-MPF (1%) 10 MG/1 ML VIAL 5 ML INFILTRATI SCH (11:00)
[2022-06-02] MEDS ORDERED: PROMETHAZINE 25 MG RECT SUPP PR PRN (11:00)
[2022-06-02] MEDS ORDERED: WITCH HAZEL/ GLYCERIN PAD TP PRN (11:00)
[2022-06-02] MEDS ORDERED: AZITHROMYCIN 250 MG TAB PO SCH (11:00)
[2022-06-02] MEDS ORDERED: HYDROmorphone 0.5 MG/0.5 ML INJ IV PRN (11:30)
[2022-06-02] MEDS ORDERED: ACETAMINOPHEN 325 MG TAB PO SCH (13:30)
[2022-06-02] MEDS: MAGNESIUM SULFATE 40GM/1000ML 40 GM/1,000 ML BAG IV SCH (14:16)
[2022-06-02] MEDS: MORPHINE 2 MG/1 ML INJ IV PRN (14:57)
[2022-06-02] MEDS ORDERED: ceFAZolin/NS 1 GM/50 ML 1 GM/50 ML BAG IV SCH (16:00)
[2022-06-02] MEDS: KETOROLAC 30 MG/1 ML INJ IV SCH (17:37)
[2022-06-02] MEDS ORDERED: LACTATED RINGERS 1,000 ML ONE (17:39)
[2022-06-02] MEDS: ACETAMINOPHEN 500 MG TAB PO SCH ×2 (18:00→22:24)
--- NOTE | 2022-06-02 18:13 | Progress Note ---
Assessment and Plan - Patient Problems (1) Dyspnea Current Visit: Yes Status: Acute Plan to address problem: Chest XR ordered. Subjective - Subjective Date of service: 06/02/22 Principal diagnosis: C/S delivered @39 weeks, Preeclampsia, Patient reports: appetite normal : doing well Objective - Vital Signs Latest vital signs: Vital Signs Temp Pulse Resp BP Pulse Ox Pulse Ox 06/02/22 18:06 110 H 148/85 97 06/02/22 18:05 100 F H 20 06/02/22 18:01 107 H 96 06/02/22 18:00 108 H 94 06/02/22 17:56 101 H 95 06/02/22 17:51 114 H 94 06/02/22 17:46 118 H 94 06/02/22 17:41 111 H 95 06/02/22 17:39 102 H 94 06/02/22 17:36 99 H 132/74 96 06/02/22 17:34 102 H 94 06/02/22 17:31 102 H 96 06/02/22 17:26 100 H 96 06/02/22 17:21 101 H 95 06/02/22 17:20 103 H 94 06/02/22 17:16 112 H 97 06/02/22 17:11 98 H 96 06/02/22 17:06 101 H 121/80 96 06/02/22 17:01 109 H 95 06/02/22 16:56 97 H 96 06/02/22 16:53 99 H 94 06/02/22 16:51 103 H 96 06/02/22 16:46 100 H 96 06/02/22 16:44 99 H 94 06/02/22 16:41 105 H 95 06/02/22 16:36 104 H 124/81 95 06/02/22 16:31 103 H 96 06/02/22 16:28 107 H 89 06/02/22 16:26 101 H 95 06/02/22 16:21 107 H 97 06/02/22 16:17 98 H 94 06/02/22 16:16 100 H 94 06/02/22 16:11 89 95 06/02/22 16:10 90 94 06/02/22 16:06 93 H 121/61 96 06/02/22 16:03 97.9 F 16 06/02/22 16:01 86 95 06/02/22 15:58 83 94 06/02/22 15:56 97 H 95 06/02/22 15:53 88 94 06/02/22 15:51 88 94 06/02/22 15:47 85 94 06/02/22 15:46 84 95 06/02/22 15:42 103 H 94 06/02/22 15:41 100 H 95 06/02/22 15:36 92 H 136/80 95 06/02/22 15:34 93 H 94 06/02/22 15:31 94 H 95 06/02/22 15:29 95 H 94 06/02/22 15:26 102 H 95 06/02/22 15:22 100 H 94 06/02/22 15:21 100 H 96 06/02/22 15:16 96 H 95 06/02/22 15:11 100 H 96 06/02/22 15:06 98 H 139/94 95 06/02/22 15:05 105 H 94 06/02/22 15:01 104 H 95 06/02/22 14:59 106 H 94 06/02/22 14:57 18 06/02/22 14:56 104 H 96 06/02/22 14:51 102 H 96 06/02/22 14:46 101 H 97 06/02/22 14:41 103 H 96 06/02/22 14:36 93 H 143/91 97 06/02/22 14:31 96 H 97 06/02/22 14:26 105 H 95 06/02/22 14:25 99 H 94 06/02/22 14:21 103 H 93 06/02/22 14:17 100 H 94 06/02/22 14:16 108 H 95 06/02/22 14:12 110 H 94 06/02/22 14:11 103 H 96 06/02/22 14:07 89 124/71 06/02/22 14:06 85 99 06/02/22 14:01 83 99 06/02/22 13:56 83 100 06/02/22 13:51 81 99 06/02/22 13:46 82 99 06/02/22 13:41 79 99 06/02/22 13:37 86 121/74 06/02/22 13:36 81 99 06/02/22 13:31 84 99 06/02/22 13:26 81 100 06/02/22 13:21 85 100 06/02/22 13:16 99 H 100 06/02/22 13:11 84 99 06/02/22 13:07 90 157/87 06/02/22 13:06 85 100 06/02/22 13:01 87 99 06/02/22 12:56 88 99 06/02/22 12:51 82 98 06/02/22 12:46 98 06/02/22 12:41 87 99 06/02/22 12:36 90 138/86 98 06/02/22 12:31 85 98 06/02/22 12:26 86 99 06/02/22 12:21 91 H 96 06/02/22 12:16 98.1 F 82 16 100 06/02/22 12:11 90 99 06/02/22 12:06 87 148/91 99 06/02/22 12:01 95 H 97 06/02/22 11:56 96 H 97 06/02/22 11:54 95 06/02/22 11:51 107 H 99 06/02/22 11:48 88 94 06/02/22 11:46 91 H 94 06/02/22 11:41 92 H 95 06/02/22 11:36 93 H 143/89 94 06/02/22 11:35 91 H 94 06/02/22 11:31 100 H 93 06/02/22 11:27 95 H 94 06/02/22 11:26 92 H 94 06/02/22 11:21 99 H 95 06/02/22 10:48 152/104 06/02/22 10:47 98.1 F 89 24 152/104 91 06/02/22 10:30 69 28 H 143/94 100 06/02/22 10:15 74 26 H 140/102 100 06/02/22 10:00 71 22 157/101 99 06/02/22 09:55 73 26 H 146/92 99 06/02/22 09:50 84 19 148/88 97 06/02/22 09:47 97.7 F 91 H 22 149/111 96 06/02/22 07:41 79 98 06/02/22 07:36 76 99 06/02/22 07:31 81 99 06/02/22 07:26 77 97 06/02/22 07:21 103 H 96 06/02/22 07:16 90 98 06/02/22 07:11 84 98 06/02/22 07:06 73 97 06/02/22 07:01 79 136/94 97 06/02/22 06:56 81 97 06/02/22 06:51 89 96 06/02/22 06:47 98.1 F 06/02/22 06:46 76 98 06/02/22 06:41 88 96 06/02/22 06:36 87 99 06/02/22 06:31 76 98 06/02/22 06:26 79 99 06/02/22 06:21 81 98 06/02/22 06:17 72 98 06/02/22 06:11 72 98 06/02/22 06:08 80 94 06/02/22 06:07 72 97 06/02/22 06:01 79 109/60 95 06/02/22 05:57 75 95 06/02/22 05:52 73 95 06/02/22 05:49 70 94 06/02/22 05:46 72 95 06/02/22 05:43 68 94 06/02/22 05:41 73 95 06/02/22 05:36 72 95 06/02/22 05:31 78 94 06/02/22 05:27 71 95 06/02/22 05:26 73 94 06/02/22 05:22 76 95 06/02/22 05:21 74 94 06/02/22 05:16 71 96 06/02/22 05:11 72 97 06/02/22 05:06 70 97 06/02/22 05:04 64 109/68 06/02/22 05:01 83 97 06/02/22 04:56 77 97 06/02/22 04:51 78 97 06/02/22 04:46 83 97 06/02/22 04:41 75 98 06/02/22 04:36 85 98 06/02/22 04:31 88 96 06/02/22 04:26 83 96 06/02/22 04:21 77 97 06/02/22 04:16 78 96 06/02/22 04:11 77 96 06/02/22 04:06 76 96 06/02/22 04:02 81 140/84 06/02/22 04:01 80 95 06/02/22 03:56 79 97 06/02/22 03:51 74 95 06/02/22 03:48 84 93 06/02/22 03:46 98.2 F 74 95 06/02/22 03:41 81 97 06/02/22 03:36 79 97 06/02/22 03:31 89 97 06/02/22 03:26 86 97 06/02/22 03:21 84 97 06/02/22 03:16 77 97 06/02/22 03:11 80 98 06/02/22 03:06 79 96 06/02/22 03:02 73 140/82 06/02/22 03:01 85 97 06/02/22 02:56 88 98 06/02/22 02:51 93 H 97 06/02/22 02:46 83 98 06/02/22 02:41 73 97 06/02/22 02:36 69 97 06/02/22 02:31 72 97 06/02/22 02:26 68 98 06/02/22 02:21 68 96 06/02/22 02:16 71 98 06/02/22 02:11 72 97 06/02/22 02:06 66 98 06/02/22 02:01 72 126/67 97 06/02/22 01:56 74 95 06/02/22 01:53 77 94 06/02/22 01:51 78 96 06/02/22 01:46 70 97 06/02/22 01:41 85 97 06/02/22 01:36 91 H 97 06/02/22 01:31 86 98 06/02/22 01:26 98.3 F 94 H 100 06/02/22 01:21 81 99 06/02/22 01:16 92 H 98 06/02/22 01:11 80 98 06/02/22 01:06 80 99 06/02/22 01:05 80 137/102 06/02/22 01:01 80 135/99 98 06/02/22 00:56 75 97 06/02/22 00:51 77 97 06/02/22 00:46 81 97 06/02/22 00:41 76 97 06/02/22 00:36 85 98 06/02/22 00:31 75 97 06/02/22 00:26 84 98 06/02/22 00:21 75 97 06/02/22 00:16 70 98 06/02/22 00:11 70 97 06/02/22 00:06 72 98 06/02/22 00:01 79 126/73 98 06/01/22 23:56 78 99 06/01/22 23:51 90 99 06/01/22 23:46 86 98 06/01/22 23:41 82 99 06/01/22 23:36 77 100 06/01/22 23:31 86 97 06/01/22 23:26 84 98 06/01/22 23:21 89 98 06/01/22 23:16 85 98 06/01/22 23:11 73 98 06/01/22 23:06 76 96 06/01/22 23:01 78 134/88 97 06/01/22 22:56 79 97 06/01/22 22:51 77 97 06/01/22 22:46 78 97 06/01/22 22:41 77 97 06/01/22 22:38 86 133/86 06/01/22 22:36 82 96 06/01/22 22:31 95 H 96 06/01/22 22:26 81 98 06/01/22 22:21 88 98 06/01/22 22:16 88 98 06/01/22 22:11 103 H 96 06/01/22 22:06 82 97 06/01/22 22:01 81 139/96 98 06/01/22 21:56 83 97 06/01/22 21:51 85 97 06/01/22 21:49 67 92 06/01/22 21:46 92 H 98 06/01/22 21:41 83 97 06/01/22 21:36 81 97 06/01/22 21:31 88 98 06/01/22 21:26 80 97 06/01/22 21:21 83 97 06/01/22 21:16 97.2 F L 73 97 06/01/22 21:11 85 99 06/01/22 21:10 98 06/01/22 21:09 145/88 06/01/22 21:06 76 97 06/01/22 21:01 85 145/88 98 06/01/22 20:58 53 L 86 06/01/22 20:56 86 96 06/01/22 20:55 93 H 149/95 06/01/22 20:51 88 97 06/01/22 20:46 92 H 97 06/01/22 20:41 94 H 98 06/01/22 20:36 88 99 06/01/22 20:31 76 98 06/01/22 20:26 94 H 97 06/01/22 20:21 76 98 06/01/22 20:16 78 98 06/01/22 20:11 81 99 06/01/22 20:06 74 98 06/01/22 20:01 80 132/83 98 06/01/22 19:56 86 98 06/01/22 19:51 82 97 06/01/22 19:46 80 98 06/01/22 19:41 79 98 06/01/22 19:36 89 98 06/01/22 19:30 84 98 06/01/22 19:25 81 98 06/01/22 19:20 76 99 06/01/22 19:15 90 98 06/01/22 19:10 79 97 06/01/22 19:05 77 98 06/01/22 19:02 72 154/91 06/01/22 19:00 77 98 06/01/22 18:55 86 98 06/01/22 18:50 89 99 06/01/22 18:48 16 97 06/01/22 18:45 77 97 06/01/22 18:40 78 98 06/01/22 18:35 83 99 06/01/22 18:30 81 99 06/01/22 18:25 80 98 06/01/22 18:20 84 97 06/01/22 18:15 82 97 06/01/22 18:10 95 H 98 Intake and Output 06/02/22 06/02/22 06/02/22 07:59 15:59 23:59 Intake Total 375 2840 Output Total 1300 1350 Balance -925 1490 Intake: IV 2600 MAGNESIUM SULFATE 40GM/ 1000 1000ML 40 gm In 1,000 ml @ 2 GM/HR 50 mls/hr IV DIRECT MAYA Rx#:[id number] Oral 240 Other 375 Output: Urine 1300 1350 Indwelling Catheter 1300 500 Other: Intake, Other Source Saline Solution Total, Intake Amount 125 240 Total, Output Amount 100 500 Estimated Blood Loss 1,320 - Exam Narrative Exam: Nurse called me to come assess pt, reports she cough up blood. Pt in sitting up in bed, Very SOB, having difficulty speaking. States she has been feeling this way since she got in the room from recovery. O2 sat 95%, lungs sounds congested. CXR ordered stat. Will monitor pt closely. Lungs: Present: Other (Dyspnea, Rhonchi ausculted in lung lin) - Labs Labs: Abnormal lab results 06/01/22 06/02/22 06/02/22 Range/Units 21:52 03:44 11:55 Magnesium 3.80 H 4.50 H 3.90 H (1.7-2.3) mg/dL
--- NOTE | 2022-06-02 18:47 | XRay Report ---
CHEST 1 VIEW INDICATION: Dyspnea. COMPARISON: None. FINDINGS: Support devices: None. Heart: Normal. Lungs/Pleura: There appear to be somewhat patchy predominantly perihilar and lower lung right lung op acities. The left lung is clear. No effusion or pneumothorax. IMPRESSION: 1. Patchy right lung opacities concerning for right lung pneumonia. Signer Name: Seymour Garcia MD Signed: 06/02/2022 6:43 PM Workstation Name: [id number]
--- NOTE | 2022-06-02 19:12 | Progress Note ---
Assessment and Plan - Patient Problems (1) Pneumonia Current Visit: Yes Status: Acute Qualifiers: Laterality: right Lung location: lower lobe of lung Plan to address problem: Will start Rocephin and Zithromax per ID sepsis protocol and consult ID in am Hold MgSO4 for now Diagnosis and plan of care explained, questions encouraged and answered she voiced understanding and agrees with plan of care (2) delivery delivered Current Visit: No Status: Acute (3) Pre-eclampsia during in third trimester, antepartum Current Visit: Yes Status: Acute Plan to address problem: Hold MgSO4 for now Continue Labetalol Observe closely (4) 39 weeks gestation of Current Visit: Yes Status: Resolved (5) Chlamydia infection affecting Current Visit: Yes Status: Acute Qualifiers: Trimester: third trimester Qualified Code(s): O98.813 - Other maternal infectious and parasitic diseases complicating , third trimester; A74.9 - Chlamydial infection, unspecified Plan to address problem: Received Azithromycin 1000mg po once today (6) Previous delivery, antepartum Current Visit: Yes Status: Chronic Plan to address problem: Continue post C/S protocol (7) Gonorrhea affecting Current Visit: Yes Status: Acute Qualifiers: Trimester: third trimester Qualified Code(s): O98.213 - Gonorrhea complicating , third trimester Plan to address problem: Received Rocephin 500mg IM today (8) HSV (herpes simplex virus) infection Current Visit: Yes Status: Chronic (9) Rh negative status during in third trimester Current Visit: Yes Status: Chronic Subjective - Subjective Date of service: 06/02/22 Principal diagnosis: C/S delivered @39 weeks, Preeclampsia, SOB Interval history: feels better now however states she had SOB immediately after delivery. Patient reports: pain well controlled Objective - Vital Signs Latest vital signs: Vital Signs Temp Pulse Resp BP Pulse Ox Pulse Ox 06/02/22 19:06 98 H 133/77 97 06/02/22 19:01 104 H 94 06/02/22 18:56 109 H 97 06/02/22 18:51 102 H 98 06/02/22 18:46 104 H 97 06/02/22 18:41 101 H 98 06/02/22 18:36 102 H 137/93 97 06/02/22 18:31 108 H 97 06/02/22 18:26 108 H 97 06/02/22 18:21 118 H 98 06/02/22 18:16 105 H 96 06/02/22 18:11 110 H 97 06/02/22 18:06 110 H 148/85 97 06/02/22 18:05 100 F H 20 06/02/22 18:01 107 H 96 06/02/22 18:00 108 H 94 06/02/22 17:56 101 H 95 06/02/22 17:51 114 H 94 06/02/22 17:46 118 H 94 06/02/22 17:41 111 H 95 06/02/22 17:39 102 H 94 06/02/22 17:36 99 H 132/74 96 06/02/22 17:34 102 H 94 06/02/22 17:31 102 H 96 06/02/22 17:26 100 H 96 06/02/22 17:21 101 H 95 06/02/22 17:20 103 H 94 06/02/22 17:16 112 H 97 06/02/22 17:11 98 H 96 06/02/22 17:06 101 H 121/80 96 06/02/22 17:01 109 H 95 06/02/22 16:56 97 H 96 06/02/22 16:53 99 H 94 06/02/22 16:51 103 H 96 06/02/22 16:46 100 H 96 06/02/22 16:44 99 H 94 06/02/22 16:41 105 H 95 06/02/22 16:36 104 H 124/81 95 06/02/22 16:31 103 H 96 06/02/22 16:28 107 H 89 06/02/22 16:26 101 H 95 06/02/22 16:21 107 H 97 06/02/22 16:17 98 H 94 06/02/22 16:16 100 H 94 06/02/22 16:11 89 95 06/02/22 16:10 90 94 06/02/22 16:06 93 H 121/61 96 06/02/22 16:03 97.9 F 16 06/02/22 16:01 86 95 06/02/22 15:58 83 94 06/02/22 15:56 97 H 95 06/02/22 15:53 88 94 06/02/22 15:51 88 94 06/02/22 15:47 85 94 08/30/22 15:46 84 95 06/02/22 15:42 103 H 94 06/02/22 15:41 100 H 95 06/02/22 15:36 92 H 136/80 95 06/02/22 15:34 93 H 94 06/02/22 15:31 94 H 95 06/02/22 15:29 95 H 94 06/02/22 15:26 102 H 95 06/02/22 15:22 100 H 94 06/02/22 15:21 100 H 96 06/02/22 15:16 96 H 95 06/02/22 15:11 100 H 96 06/02/22 15:06 98 H 139/94 95 06/02/22 15:05 105 H 94 06/02/22 15:01 104 H 95 06/02/22 14:59 106 H 94 06/02/22 14:57 18 06/02/22 14:56 104 H 96 06/02/22 14:51 102 H 96 06/02/22 14:46 101 H 97 06/02/22 14:41 103 H 96 06/02/22 14:36 93 H 143/91 97 06/02/22 14:31 96 H 97 06/02/22 14:26 105 H 95 06/02/22 14:25 99 H 94 06/02/22 14:21 103 H 93 06/02/22 14:17 100 H 94 06/02/22 14:16 108 H 95 06/02/22 14:12 110 H 94 06/02/22 14:11 103 H 96 06/02/22 14:07 89 124/71 06/02/22 14:06 85 99 06/02/22 14:01 83 99 06/02/22 13:56 83 100 06/02/22 13:51 81 99 06/02/22 13:46 82 99 06/02/22 13:41 79 99 06/02/22 13:37 86 121/74 06/02/22 13:36 81 99 06/02/22 13:31 84 99 06/02/22 13:26 81 100 06/02/22 13:21 85 100 06/02/22 13:16 99 H 100 06/02/22 13:11 84 99 06/02/22 13:07 90 157/87 06/02/22 13:06 85 100 06/02/22 13:01 87 99 06/02/22 12:56 88 99 06/02/22 12:51 82 98 06/02/22 12:46 98 06/02/22 12:41 87 99 06/02/22 12:36 90 138/86 98 06/02/22 12:31 85 98 06/02/22 12:26 86 99 06/02/22 12:21 91 H 96 06/02/22 12:16 98.1 F 82 16 100 06/02/22 12:11 90 99 06/02/22 12:06 87 148/91 99 06/02/22 12:01 95 H 97 06/02/22 11:56 96 H 97 06/02/22 11:54 95 06/02/22 11:51 107 H 99 06/02/22 11:48 88 94 06/02/22 11:46 91 H 94 06/02/22 11:41 92 H 95 06/02/22 11:36 93 H 143/89 94 06/02/22 11:35 91 H 94 06/02/22 11:31 100 H 93 06/02/22 11:27 95 H 94 06/02/22 11:26 92 H 94 06/02/22 11:21 99 H 95 06/02/22 10:48 152/104 06/02/22 10:47 98.1 F 89 24 152/104 91 06/02/22 10:30 69 28 H 143/94 100 06/02/22 10:15 74 26 H 140/102 100 06/02/22 10:00 71 22 157/101 99 06/02/22 09:55 73 26 H 146/92 99 06/02/22 09:50 84 19 148/88 97 06/02/22 09:47 97.7 F 91 H 22 149/111 96 06/02/22 07:41 79 98 06/02/22 07:36 76 99 06/02/22 07:31 81 99 06/02/22 07:26 77 97 06/02/22 07:21 103 H 96 06/02/22 07:16 90 98 06/02/22 07:11 84 98 06/02/22 07:06 73 97 06/02/22 07:01 79 136/94 97 06/02/22 06:56 81 97 06/02/22 06:51 89 96 06/02/22 06:47 98.1 F 06/02/22 06:46 76 98 06/02/22 06:41 88 96 06/02/22 06:36 87 99 06/02/22 06:31 76 98 06/02/22 06:26 79 99 06/02/22 06:21 81 98 06/02/22 06:17 72 98 06/02/22 06:11 72 98 06/02/22 06:08 80 94 06/02/22 06:07 72 97 06/02/22 06:01 79 109/60 95 06/02/22 05:57 75 95 06/02/22 05:52 73 95 06/02/22 05:49 70 94 06/02/22 05:46 72 95 06/02/22 05:43 68 94 06/02/22 05:41 73 95 06/02/22 05:36 72 95 06/02/22 05:31 78 94 06/02/22 05:27 71 95 06/02/22 05:26 73 94 06/02/22 05:22 76 95 06/02/22 05:21 74 94 06/02/22 05:16 71 96 06/02/22 05:11 72 97 06/02/22 05:06 70 97 06/02/22 05:04 64 109/68 06/02/22 05:01 83 97 06/02/22 04:56 77 97 06/02/22 04:51 78 97 06/02/22 04:46 83 97 06/02/22 04:41 75 98 06/02/22 04:36 85 98 06/02/22 04:31 88 96 06/02/22 04:26 83 96 06/02/22 04:21 77 97 06/02/22 04:16 78 96 06/02/22 04:11 77 96 06/02/22 04:06 76 96 06/02/22 04:02 81 140/84 06/02/22 04:01 80 95 06/02/22 03:56 79 97 06/02/22 03:51 74 95 06/02/22 03:48 84 93 06/02/22 03:46 98.2 F 74 95 06/02/22 03:41 81 97 06/02/22 03:36 79 97 06/02/22 03:31 89 97 06/02/22 03:26 86 97 06/02/22 03:21 84 97 06/02/22 03:16 77 97 06/02/22 03:11 80 98 06/02/22 03:06 79 96 06/02/22 03:02 73 140/82 06/02/22 03:01 85 97 06/02/22 02:56 88 98 06/02/22 02:51 93 H 97 06/02/22 02:46 83 98 06/02/22 02:41 73 97 06/02/22 02:36 69 97 06/02/22 02:31 72 97 06/02/22 02:26 68 98 06/02/22 02:21 68 96 06/02/22 02:16 71 98 06/02/22 02:11 72 97 06/02/22 02:06 66 98 06/02/22 02:01 72 126/67 97 06/02/22 01:56 74 95 06/02/22 01:53 77 94 06/02/22 01:51 78 96 06/02/22 01:46 70 97 06/02/22 01:41 85 97 06/02/22 01:36 91 H 97 06/02/22 01:31 86 98 06/02/22 01:26 98.3 F 94 H 100 06/02/22 01:21 81 99 06/02/22 01:16 92 H 98 06/02/22 01:11 80 98 06/02/22 01:06 80 99 06/02/22 01:05 80 137/102 06/02/22 01:01 80 135/99 98 06/02/22 00:56 75 97 06/02/22 00:51 77 97 06/02/22 00:46 81 97 06/02/22 00:41 76 97 06/02/22 00:36 85 98 06/02/22 00:31 75 97 06/02/22 00:26 84 98 06/02/22 00:21 75 97 06/02/22 00:16 70 98 06/02/22 00:11 70 97 06/02/22 00:06 72 98 06/02/22 00:01 79 126/73 98 06/01/22 23:56 78 99 06/01/22 23:51 90 99 06/01/22 23:46 86 98 06/01/22 23:41 82 99 06/01/22 23:36 77 100 06/01/22 23:31 86 97 06/01/22 23:26 84 98 06/01/22 23:21 89 98 06/01/22 23:16 85 98 06/01/22 23:11 73 98 06/01/22 23:06 76 96 06/01/22 23:01 78 134/88 97 06/01/22 22:56 79 97 06/01/22 22:51 77 97 06/01/22 22:46 78 97 06/01/22 22:41 77 97 06/01/22 22:38 86 133/86 06/01/22 22:36 82 96 06/01/22 22:31 95 H 96 06/01/22 22:26 81 98 06/01/22 22:21 88 98 06/01/22 22:16 88 98 06/01/22 22:11 103 H 96 06/01/22 22:06 82 97 06/01/22 22:01 81 139/96 98 06/01/22 21:56 83 97 06/01/22 21:51 85 97 06/01/22 21:49 67 92 06/01/22 21:46 92 H 98 06/01/22 21:41 83 97 06/01/22 21:36 81 97 06/01/22 21:31 88 98 06/01/22 21:26 80 97 06/01/22 21:21 83 97 06/01/22 21:16 97.2 F L 73 97 06/01/22 21:11 85 99 06/01/22 21:10 98 06/01/22 21:09 145/88 06/01/22 21:06 76 97 06/01/22 21:01 85 145/88 98 06/01/22 20:58 53 L 86 06/01/22 20:56 86 96 06/01/22 20:55 93 H 149/95 06/01/22 20:51 88 97 06/01/22 20:46 92 H 97 06/01/22 20:41 94 H 98 06/01/22 20:36 88 99 06/01/22 20:31 76 98 06/01/22 20:26 94 H 97 06/01/22 20:21 76 98 06/01/22 20:16 78 98 06/01/22 20:11 81 99 06/01/22 20:06 74 98 06/01/22 20:01 80 132/83 98 06/01/22 19:56 86 98 06/01/22 19:51 82 97 06/01/22 19:46 80 98 06/01/22 19:41 79 98 06/01/22 19:36 89 98 06/01/22 19:30 84 98 06/01/22 19:25 81 98 06/01/22 19:20 76 99 06/01/22 19:15 90 98 Intake and Output 06/02/22 06/02/22 06/02/22 06:59 14:59 22:59 Intake Total 1375 2840 Output Total 1200 1450 Balance 175 1390 Intake: IV 1000 2600 Lactated Ringers 1,000 ml 1000 @ 125 mls/hr IV DIRECT MAYA Rx#:[id number] MAGNESIUM SULFATE 40GM/ 1000 1000ML 40 gm In 1,000 ml @ 2 GM/HR 50 mls/hr IV DIRECT MAYA Rx#:[id number] Oral 240 Other 375 Output: Urine 1200 1450 Indwelling Catheter 1200 600 Other: Intake, Other Source Saline Solution Total, Intake Amount 125 240 Total, Output Amount 500 500 Estimated Blood Loss 1,320 - Exam Narrative Exam: Sitting in [place] with baby at (L) breast, no acute distress - Labs Labs: Abnormal lab results 06/01/22 06/02/22 06/02/22 Range/Units 21:52 03:44 11:55 Magnesium 3.80 H 4.50 H 3.90 H (1.7-2.3) mg/dL
[2022-06-02] MEDS ORDERED: MAGNESIUM HYDROXIDE (MOM) ORAL LIQD UDC PO PRN (22:00)
[2022-06-02] MEDS ORDERED: SENNOSIDES 8.6 MG TAB PO PRN (22:00)
[2022-06-02 22:40] LABS: Hematocrit 27.9 % (30.3-42.9); Hemoglobin 9.4 gm/dl (10.1-14.3)
[2022-06-03] MEDS: cefTRIAXone/NS 2 GM/100 ML 2 GM/100 ML BAG IV SCH (00:36)
[2022-06-03] MEDS: KETOROLAC 30 MG/1 ML INJ IV SCH ×2 (01:42→12:45)
[2022-06-03] MEDS: ACETAMINOPHEN 500 MG TAB PO SCH ×3 (05:34→22:10)
[2022-06-03] MEDS: AZITHROMYCIN/NS 500 MG/250 ML 500 MG/250 ML BAG IV SCH (08:02)
--- NOTE | 2022-06-03 08:33 | Progress Note ---
Assessment and Plan A: 21 y.o. s/p rpt , POD #1, pneumonia, Pre-eclampsia. - Patient Problems (1) Pneumonia Current Visit: Yes Status: Acute Qualifiers: Laterality: right Lung location: lower lobe of lung Plan to address problem: ID consulted, waiting for recommendations. - Call placed. Continue with IV antibiotics. Continue to monitor oxygen saturations. Continue to monitor maternal temperatures. (2) delivery delivered Current Visit: No Status: Acute Plan to address problem: Continue with post op care. Transfer to mother baby around noon if pt continues to be stable. Advance diet has tolerated. Encourage continued ambulation. Encourage IS use. (3) Pre-eclampsia in puerperium Current Visit: Yes Status: Acute Plan to address problem: Magnesium has been turned off. Continue to monitor blood pressures. Continue to monitor for worsening s/sx of Pre eclampsia. Continue with Labetalol 200mg BID. Continue to monitor I&O's. Subjective - Subjective Date of service: 06/03/22 Principal diagnosis: C/S delivered @39 weeks, Preeclampsia, SOB Interval history: Pt denies TELLES, blurred vision, spots before her eyes, chest pain, shortness of breath, and upper abdominal pain. States that she feels a little bit "foggy" but otherwise is doing well. We discussed that this is normal d/t anesthesia used for , and she had magnesium infusion going for some time after delivery. We also discussed if she continues to remain stable, she will be transferred to unit today. Pt verbalized understanding. Patient reports: appetite normal, voiding normally, pain well controlled, flatus, ambulating normally [facility]: doing well Objective - Vital Signs Latest vital signs: Vital Signs Temp Pulse Resp BP Pulse Ox Pulse Ox 06/03/22 08:26 87 100 06/03/22 08:21 89 98 06/03/22 08:16 99 H 100 06/03/22 08:01 87 97 06/03/22 07:56 92 H 100 06/03/22 07:51 84 98 06/03/22 07:49 76 128/70 06/03/22 07:46 81 97 06/03/22 07:41 82 99 06/03/22 07:36 80 98 06/03/22 07:31 76 98 06/03/22 07:26 74 100 06/03/22 07:21 78 99 08/31/22 07:16 90 98 06/03/22 07:11 79 98 06/03/22 07:06 99 H 99 06/03/22 07:01 83 97 06/03/22 06:56 77 97 06/03/22 06:51 79 97 06/03/22 06:50 75 113/63 06/03/22 06:46 77 97 06/03/22 06:41 92 H 98 06/03/22 06:36 89 99 06/03/22 06:31 84 98 06/03/22 06:26 87 93 06/03/22 06:03 97 H 97 06/03/22 05:58 87 99 06/03/22 05:53 87 98 06/03/22 05:50 83 153/89 06/03/22 05:48 98 H 98 06/03/22 05:43 76 98 06/03/22 05:38 85 98 06/03/22 05:33 89 99 06/03/22 05:28 98.5 F 92 H 14 98 06/03/22 05:23 102 H 99 06/03/22 05:18 89 97 06/03/22 05:13 87 99 06/03/22 05:08 90 98 06/03/22 05:03 76 99 06/03/22 04:58 77 97 06/03/22 04:53 83 97 06/03/22 04:49 77 134/85 06/03/22 04:48 84 97 06/03/22 04:43 94 H 99 06/03/22 04:38 77 97 06/03/22 04:33 80 97 06/03/22 04:28 92 H 99 06/03/22 04:23 101 H 98 06/03/22 04:18 85 98 06/03/22 04:13 85 97 06/03/22 04:08 80 97 06/03/22 04:03 98 H 99 06/03/22 03:58 87 98 06/03/22 03:53 86 99 06/03/22 03:49 77 140/84 06/03/22 03:48 82 98 06/03/22 03:43 94 H 99 06/03/22 03:38 89 99 06/03/22 03:33 87 98 06/03/22 03:28 94 H 98 06/03/22 03:23 90 99 06/03/22 03:18 89 98 06/03/22 03:15 87 144/87 06/03/22 03:13 85 98 06/03/22 02:36 92 H 99 06/03/22 02:31 83 98 06/03/22 02:26 84 97 06/03/22 02:21 81 98 06/03/22 02:16 84 98 06/03/22 02:11 95 H 96 06/03/22 02:06 85 98 06/03/22 02:01 87 98 06/03/22 01:56 100 H 98 06/03/22 01:51 87 98 06/03/22 01:47 98.5 F 84 16 98 06/03/22 01:46 98 H 99 06/03/22 01:41 97 H 99 06/03/22 01:36 80 136/89 97 06/03/22 01:31 85 99 06/03/22 01:26 90 98 06/03/22 01:21 90 98 06/03/22 01:16 83 98 06/03/22 01:11 105 H 98 06/03/22 01:06 84 133/86 97 06/03/22 01:01 82 96 06/03/22 00:56 88 96 06/03/22 00:51 85 98 06/03/22 00:46 87 98 06/03/22 00:41 88 99 06/03/22 00:37 94 H 147/60 06/03/22 00:36 96 H 99 06/03/22 00:31 84 97 06/03/22 00:26 97 H 98 06/03/22 00:24 102 H 92 06/03/22 00:21 83 98 06/03/22 00:16 89 97 06/03/22 00:11 98 H 97 06/03/22 00:06 85 125/81 98 06/03/22 00:01 86 97 06/02/22 23:56 91 H 97 06/02/22 23:51 82 98 06/02/22 23:46 86 98 06/02/22 23:41 84 98 06/02/22 23:37 96 H 145/68 06/02/22 23:36 96 H 98 06/02/22 23:31 88 98 06/02/22 23:26 87 98 06/02/22 23:21 87 98 06/02/22 23:16 91 H 98 06/02/22 23:11 94 H 98 06/02/22 23:06 92 H 135/86 98 06/02/22 23:01 98 H 98 06/02/22 22:56 94 H 98 06/02/22 22:51 91 H 98 06/02/22 22:46 102 H 99 06/02/22 22:41 104 H 97 06/02/22 22:36 89 140/84 95 06/02/22 22:34 114 H 85 06/02/22 22:31 104 H 98 06/02/22 22:26 111 H 100 06/02/22 22:21 94 H 97 06/02/22 22:16 90 97 06/02/22 22:11 88 97 06/02/22 22:06 92 H 132/78 97 06/02/22 22:01 103 H 97 06/02/22 21:58 119 H 94 06/02/22 21:56 96 H 96 06/02/22 21:51 94 H 96 06/02/22 21:46 95 H 96 06/02/22 21:41 96 H 95 06/02/22 21:36 95 H 120/63 96 06/02/22 21:31 89 95 06/02/22 21:27 96 H 93 06/02/22 21:26 96 H 96 06/02/22 21:21 104 H 96 06/02/22 21:17 100 H 94 06/02/22 21:16 98 H 96 06/02/22 21:11 94 H 96 06/02/22 21:06 95 H 127/73 96 06/02/22 21:05 112 H 94 06/02/22 21:01 93 H 95 06/02/22 20:56 99 H 95 06/02/22 20:51 97 H 94 06/02/22 20:47 94 H 94 06/02/22 20:46 94 H 95 06/02/22 20:41 94 H 95 06/02/22 20:36 102 H 114/63 97 06/02/22 20:31 96 H 96 06/02/22 20:26 94 H 97 06/02/22 20:21 91 H 97 06/02/22 20:16 98 H 97 06/02/22 20:11 96 H 98 06/02/22 20:06 89 133/72 97 06/02/22 20:01 110 H 100 06/02/22 20:00 98.3 F 100 H 18 98 06/02/22 19:56 94 H 98 98 06/02/22 19:51 96 H 98 06/02/22 19:46 99 H 97 06/02/22 19:41 100 H 96 06/02/22 19:36 106 H 133/77 97 06/02/22 19:31 112 H 100 06/02/22 19:26 116 H 98 06/02/22 19:21 111 H 97 06/02/22 19:16 101 H 98 06/02/22 19:11 111 H 97 06/02/22 19:06 98 H 133/77 97 06/02/22 19:01 104 H 94 06/02/22 18:56 109 H 97 06/02/22 18:51 102 H 98 06/02/22 18:46 104 H 97 06/02/22 18:41 101 H 98 06/02/22 18:36 102 H 137/93 97 06/02/22 18:31 108 H 97 06/02/22 18:26 108 H 97 06/02/22 18:21 118 H 98 06/02/22 18:16 105 H 96 06/02/22 18:11 110 H 97 06/02/22 18:06 110 H 148/85 97 06/02/22 18:05 100 F H 20 06/02/22 18:01 107 H 96 06/02/22 18:00 108 H 94 06/02/22 17:56 101 H 95 06/02/22 17:51 114 H 94 06/02/22 17:46 118 H 94 06/02/22 17:41 111 H 95 06/02/22 17:39 102 H 94 06/02/22 17:36 99 H 132/74 96 06/02/22 17:34 102 H 94 06/02/22 17:31 102 H 96 06/02/22 17:26 100 H 96 06/02/22 17:21 101 H 95 06/02/22 17:20 103 H 94 06/02/22 17:16 112 H 97 06/02/22 17:11 98 H 96 06/02/22 17:06 101 H 121/80 96 06/02/22 17:01 109 H 95 06/02/22 16:56 97 H 96 06/02/22 16:53 99 H 94 06/02/22 16:51 103 H 96 06/02/22 16:46 100 H 96 06/02/22 16:44 99 H 94 06/02/22 16:41 105 H 95 06/02/22 16:36 104 H 124/81 95 06/02/22 16:31 103 H 96 06/02/22 16:28 107 H 89 06/02/22 16:26 101 H 95 06/02/22 16:21 107 H 97 06/02/22 16:17 98 H 94 06/02/22 16:16 100 H 94 06/02/22 16:11 89 95 06/02/22 16:10 90 94 06/02/22 16:06 93 H 121/61 96 06/02/22 16:03 97.9 F 16 06/02/22 16:01 86 95 06/02/22 15:58 83 94 06/02/22 15:56 97 H 95 06/02/22 15:53 88 94 06/02/22 15:51 88 94 06/02/22 15:47 85 94 06/02/22 15:46 84 95 06/02/22 15:42 103 H 94 06/02/22 15:41 100 H 95 06/02/22 15:36 92 H 136/80 95 06/02/22 15:34 93 H 94 06/02/22 15:31 94 H 95 06/02/22 15:29 95 H 94 06/02/22 15:26 102 H 95 06/02/22 15:22 100 H 94 06/02/22 15:21 100 H 96 06/02/22 15:16 96 H 95 06/02/22 15:11 100 H 96 06/02/22 15:06 98 H 139/94 95 06/02/22 15:05 105 H 94 06/02/22 15:01 104 H 95 06/02/22 14:59 106 H 94 06/02/22 14:57 18 06/02/22 14:56 104 H 96 06/02/22 14:51 102 H 96 06/02/22 14:46 101 H 97 06/02/22 14:41 103 H 96 06/02/22 14:36 93 H 143/91 97 06/02/22 14:31 96 H 97 06/02/22 14:26 105 H 95 06/02/22 14:25 99 H 94 06/02/22 14:21 103 H 93 06/02/22 14:17 100 H 94 06/02/22 14:16 108 H 95 06/02/22 14:12 110 H 94 06/02/22 14:11 103 H 96 06/02/22 14:07 89 124/71 06/02/22 14:06 85 99 06/02/22 14:01 83 99 06/02/22 13:56 83 100 06/02/22 13:51 81 99 06/02/22 13:46 82 99 06/02/22 13:41 79 99 06/02/22 13:37 86 121/74 06/02/22 13:36 81 99 06/02/22 13:31 84 99 06/02/22 13:26 81 100 06/02/22 13:21 85 100 06/02/22 13:16 99 H 100 06/02/22 13:11 84 99 06/02/22 13:07 90 157/87 06/02/22 13:06 85 100 06/02/22 13:01 87 99 06/02/22 12:56 88 99 06/02/22 12:51 82 98 06/02/22 12:46 98 06/02/22 12:41 87 99 06/02/22 12:36 90 138/86 98 06/02/22 12:31 85 98 06/02/22 12:26 86 99 06/02/22 12:21 91 H 96 06/02/22 12:16 98.1 F 82 16 100 06/02/22 12:11 90 99 06/02/22 12:06 87 148/91 99 06/02/22 12:01 95 H 97 06/02/22 11:56 96 H 97 06/02/22 11:54 95 06/02/22 11:51 107 H 99 06/02/22 11:48 88 94 06/02/22 11:46 91 H 94 06/02/22 11:41 92 H 95 06/02/22 11:36 93 H 143/89 94 06/02/22 11:35 91 H 94 06/02/22 11:31 100 H 93 06/02/22 11:27 95 H 94 06/02/22 11:26 92 H 94 06/02/22 11:21 99 H 95 06/02/22 10:48 152/104 06/02/22 10:47 98.1 F 89 24 152/104 91 06/02/22 10:30 69 28 H 143/94 100 06/02/22 10:15 74 26 H 140/102 100 06/02/22 10:00 71 22 157/101 99 06/02/22 09:55 73 26 H 146/92 99 06/02/22 09:50 84 19 148/88 97 06/02/22 09:47 97.7 F 91 H 22 149/111 96 Intake and Output 06/02/22 06/03/22 06/03/22 22:59 06:59 14:59 Intake Total 0 Output Total 500 800 Balance -500 -800 Intake: Blood Product 0 Rhogam Unit [id number] Output: Urine 500 800 Indwelling Catheter 500 800 Other: Total, Output Amount 500 350 - Exam Narrative Exam: O2 saturation ranges have been 97-100 % on RA. Blood pressure ranges have been 113-153/60-86. Cardiovascular: Present: Normal S1, Normal S2 Lungs: Present: Clear to auscultation Abdomen: Present: normal appearance, soft, normal bowel sounds Vulva: both: normal Uterus: Present: normal Extremities: Present: normal Deep Tendon Reflex Grade: Normal +2 Incision: Present: normal, dry, intact, other (No drainage or s/sx of infection noted. ) - Labs Labs: Abnormal lab results 06/02/22 06/02/22 06/02/22 Range/Units 11:55 21:58 21:58 Hgb 9.4 L (10.1-14.3) gm/dl Hct 27.9 L (30.3-42.9) % Magnesium 3.90 H 3.40 H (1.7-2.3) mg/dL 06/03/22 Range/Units 03:51 Hgb (10.1-14.3) gm/dl Hct (30.3-42.9) % Magnesium 2.40 H (1.7-2.3) mg/dL
[2022-06-03] MEDS: FERROUS SULFATE 325 MG TAB PO SCH (09:59)
[2022-06-03] MEDS ORDERED: IBUPROFEN 600 MG TAB PO PRN (10:00)
--- NOTE | 2022-06-03 10:29 | Consultation ---
History of Present Illness - Reason for Consult Consult date: 06/03/22 pneumonia Requesting physician: ISABELA LAM - History of Present Illness The patient is a 21-year-old female who was 38.6 weeks was admitted to the hospital on 06/01/2022 with elevated blood pressures. She underwent a C- section on 06/02/2022. Postoperatively, she developed a low-grade fever, pleuritic chest pain and was coughing up some occasional blood tinged sputum. C hest x-ray revealed right-sided pneumonia. Infectious diseases was consulted for additional evaluation. COVID-19 PCR is negative. T-max was 100 F. No fever today. Is currently receiving ceftriaxone, azithromycin. Reports feeling slightly better today. Review of Systems: General: Low-grade temperature x 1 HEENT: no new visual disturbance Respiratory: Pleuritic chest pain, cough, blood-streaked sputum Cardiovascular: No other chest pain, syncope Gastrointestinal: No nausea, vomiting or diarrhea Genitourinary: No dysuria or hematuria Musculoskeletal: No new or worsening neck pain or back pain Neurologic: No headaches, seizures Hematologic: No easy bruising or bleeding Endocrine: No night sweats or acute weight loss Skin: negative for rash, jaundice Psychiatric: No suicidal or homicidal ideation Past History Social history: no significant social history Medications and Allergies Allergies Allergy/AdvReac Type Severity Reaction Status Date / Time No Known Allergies Allergy Verified 06/29/20 01:31 Home Medications Medication Instructions Recorded Confirmed Last Taken Type Ferrous Sulfate [Feosol 325 MG tab] 325 mg PO QDAY #60 tablet 06/29/20 Unknown Rx Ibuprofen [Motrin 800 MG tab] 800 mg PO Q8HR PRN #30 tablet 06/29/20 Unknown Rx Valacyclovir HCl [Valacyclovir] 1,000 mg PO QDAY #30 tablet 07/01/20 Unknown Rx Docusate Sodium [Colace CAP] 100 mg PO BID PRN #60 capsule 06/02/22 Unknown Rx Docusate Sodium [Colace] 100 mg PO BID PRN #30 capsule 06/02/22 Unknown Rx Ferrous Sulfate [Feosol 325 MG tab] 325 mg PO BID #90 tablet 06/02/22 Unknown Rx Ferrous Sulfate [Feosol 325 MG tab] 325 mg PO QDAY #90 tablet 06/02/22 Unknown Rx Ibuprofen [Motrin 800 MG tab] 800 mg PO Q6H PRN #30 tablet 06/02/22 Unknown Rx Ibuprofen [Motrin 800 MG tab] 800 mg PO TID PRN #30 tablet 06/02/22 Unknown Rx Lidocain2.5%/Prilocai2.5% [Emla] 5 gm TP ONCE #1 tube 06/02/22 Unknown Rx labetaloL [Labetalol 200mg TAB] 200 mg PO BID #60 tablet 06/02/22 Unknown Rx oxyCODONE /ACETAMINOPHEN [Percocet 1 - 2 tab PO Q4HR PRN #14 tablet 06/02/22 Unknown Rx 5/325 mg] oxyCODONE /ACETAMINOPHEN [Percocet 2 tab PO Q6H PRN tablet 06/02/22 Unknown Rx 5/325 mg] Active Meds: Active Medications Acetaminophen (Acetaminophen 500 Mg Tab) 1,000 mg PO Q8H [facility] Stop: 06/03/22 14:01 Last Admin: 06/03/22 05:34 Dose: 1,000 mg Diphtheria/Tetanus/Acell Pertussis (Tetanus,Diph,Pertuss(Acell) Vaccine 0.5 Ml Syringe) 0.5 ml IM .ONCE ONE Stop: 06/03/22 11:01 Ferrous Sulfate (Ferrous Sulfate 325 Mg Tab) 325 mg PO QDAY [facility] Last Admin: 06/03/22 09:59 Dose: 325 mg Hydrocortisone Acetate (Hydrocortisone 25 Mg Rectal Supp) 25 mg TN BID PRN PRN Reason: Hemorrhoids Hydromorphone HCl (Hydromorphone 0.5 Mg/0.5 Ml Inj) 0.5 mg IV Q4H PRN PRN Reason: BREAKTHRU PAIN Magnesium Sulfate (Magnesium Sulfate 40gm/1000ml) 40 gm in 1,000 mls @ 50 mls/hr IV DIRECT [facility] Last Admin: 06/02/22 14:16 Dose: 2 gm/hr, 50 mls/hr Fentanyl/Bupivacaine/Sodium Chlor (Fentanyl-Bupiv 2 Mcg/Ml-0.125%) 200 mcg in 100 mls @ 8 mls/hr EPIDURAL TITRATE [facility]; Protocol Oxytocin/Sodium Chloride (Pitocin/Ns 30 Unit/500ml) 30 units in 500 mls @ 40 mls/hr IV TITR [facility]; Protocol Dextrose/Lactated Ringer's (D5lr) 1,000 mls @ 125 mls/hr IV DIRECT [facility] Ceftriaxone Sodium (Rocephin/Ns 2 Gm/100 Ml) 2 gm in 100 mls @ 200 mls/hr IV Q24H [facility]; Protocol Last Admin: 06/03/22 00:36 Dose: 200 mls/hr Azithromycin (Zithromax/Ns) 500 mg in 250 mls @ 250 mls/hr IV Q24H [facility]; Protocol Last Admin: 06/03/22 08:02 Dose: 250 mls/hr Ibuprofen (Ibuprofen 600 Mg Tab) 600 mg PO Q6H PRN PRN Reason: Pain, Mild (1-3) Ibuprofen (Ibuprofen 800 Mg Tab) 800 mg PO Q6H PRN PRN Reason: Pain, Moderate (4-6) Ketorolac Tromethamine (Ketorolac 30 Mg/1 Ml Inj) 30 mg IV Q8H [facility] Stop: 06/03/22 17:31 Last Admin: 06/03/22 01:42 Dose: 30 mg Labetalol HCl (Labetalol 200 Mg Tab) 200 mg PO BID [facility] Last Admin: 06/03/22 09:59 Dose: 200 mg Magnesium Hydroxide (Magnesium Hydroxide (Mom) Oral Liqd Udc) 30 ml PO QHS PRN PRN Reason: Constip Unrelieved By Senna Morphine Sulfate (Morphine 2 Mg/1 Ml Inj) 2 mg IV Q4H PRN PRN Reason: Pain, Moderate (4-6) Last Admin: 06/02/22 14:57 Dose: 2 mg Morphine Sulfate (Morphine 4 Mg/1 Ml Inj) 4 mg IV Q4H PRN PRN Reason: Pain , Severe (7-10) Multi-Ingredient Ointment (Lanolin/Zinc/Dimethicone (Lansinoh) 7 Gm) 1 applic TP PRN PRN PRN Reason: dryness/cracking Naloxone HCl (Naloxone 0.4 Mg/1 Ml Inj) 0.2 mg IV Q2MIN PRN PRN Reason: Res Rate </= 8 or 02 SAT < 92% Ondansetron HCl (Ondansetron 4 Mg/2 Ml Inj) 4 mg IV Q8H PRN PRN Reason: Nausea And Vomiting Oxycodone/Acetaminophen (Oxycodone /Acetaminophen 5-325mg Tab) 2 tab PO Q6H PRN PRN Reason: Pain, Moderate (4-6) Promethazine HCl (Promethazine 25 Mg Tab) 25 mg PO Q6H PRN PRN Reason: Nausea And Vomiting Promethazine HCl (Promethazine 25 Mg Rect Supp) 25 mg TN Q6H PRN PRN Reason: Nausea And Vomiting Senna (Sennosides 8.6 Mg Tab) 17.2 mg PO QHS PRN PRN Reason: Constipation Simethicone (Simethicone 80 Mg Chew Tab) 80 mg PO Q6H PRN PRN Reason: Gas pain Sodium Chloride (Sodium Chloride 0.9% 10 Ml Flush Syringe) 10 ml IV PRN NR Stop: 06/15/22 10:59 Witch Amber/Glycerin (Witch Amber/ Glycerin Pad) 1 each TP PRN PRN PRN Reason: Hemorrhoids/cleansing/soothing Physical Examination - Physical Exam Narrative exam: Physical Exam: Constitutional: Alert, cooperative. No acute distress Head, Ears, Nose: Normocephalic, atraumatic. External ears, nose normal Eyes: Conjunctivae/corneas clear. No icterus. No ptosis. Neck: Supple, no meningeal signs Cardiovascular: S1, S2 + Respiratory: Occasional right basal crackles GI: Soft, non-tender; bowel sounds normal. No peritoneal signs Musculoskeletal: No pedal edema, no cyanosis. Skin: No rash or abscess Hem/Lymphatic: No palpable cervical or supraclavicular nodes. No lymphangitis Psych: Mood ok. Affect normal Neurological: Awake, alert, oriented. No gross abnormality - Constitutional Vitals: Vital Signs Temp Pulse Resp BP Pulse Ox 98.5 F 101 H 14 146/84 98 06/03/22 05:28 06/03/22 10:26 06/03/22 05:28 06/03/22 09:59 06/03/22 10:26 Temperature -Last 24 Hours Temperature 98.5 F Temperature 98.5 F Temperature 98.3 F Temperature 100 F Temperature 97.9 F Temperature 98.1 F Temperature 98.1 F Results - Labs CBC & Chem 7: 06/02/22 21:58 06/01/22 12:41 Labs: Abnormal lab results 06/02/22 06/02/22 06/02/22 Range/Units 11:55 21:58 21:58 Hgb 9.4 L (10.1-14.3) gm/dl Hct 27.9 L (30.3-42.9) % Magnesium 3.90 H 3.40 H (1.7-2.3) mg/dL 06/03/22 Range/Units 03:51 Hgb (10.1-14.3) gm/dl Hct (30.3-42.9) % Magnesium 2.40 H (1.7-2.3) mg/dL - Imaging and Cardiology Chest x-ray: report reviewed, image reviewed (minimal R basal streaky opacities) Assessment and Plan Cultures: 06/01/2022 urine culture: Usual skin rich A/P: 21-year-old female who was 38.6 weeks was admitted to the hospital on 06/01/2022 with elevated blood pressures. She underwent a on 06/02/2022: #Right-sided pneumonia: Developed postoperatively. COVID-19 PCR is negative. On room air. # status: Underwent section on 06/01/2022 for preeclampsia. Recs: -Continue IV ceftriaxone, azithromycin while inpatient. Upon discharge, switch to PO Ceftin 500 mg twice daily + azithromycin 500 mg daily to complete a total of 5 days Carolyn Bone MD, FACP, [facility] O: [phone] F: [phone] C: [phone]
[2022-06-03] MEDS ORDERED: TETANUS,DIPH,PERTUSS(ACELL) VACCINE 0.5 ML SYRINGE IM ONE (11:00)
--- NOTE | 2022-06-03 11:40 | Event Note ---
Date: 06/03/22 (ID consult completed) Pt seen by ID. Their recommendations are as follows: Continue IV ceftriaxone, azithromycin while inpatient. Upon discharge, switch to PO Ceftin 500 mg twice daily + azithromycin 500 mg daily to complete a total of 5 days.
[2022-06-03] MEDS ORDERED: AZITHROMYCIN/NS 500 MG/250 ML 500 MG/250 ML BAG IV SCH (20:00)
[2022-06-04] MEDS: oxyCODONE /ACETAMINOPHEN 5-325MG TAB PO PRN ×2 (00:33→08:37)
[2022-06-04] MEDS: cefTRIAXone/NS 2 GM/100 ML 2 GM/100 ML BAG IV SCH (00:35)
--- NOTE | 2022-06-04 08:05 | Progress Note ---
Assessment and Plan patient ambulating and using ISS, nonproductive cough present. Incision D&I, lochia scant and fundus firm. Pt denies TELLES/epigastric pain/visual changes. - Patient Problems (1) Pneumonia Current Visit: Yes Status: Acute Qualifiers: Laterality: right Lung location: lower lobe of lung Plan to address problem: recs by ID: Continue IV ceftriaxone, azithromycin while inpatient. Upon discharge, switch to PO Ceftin 500 mg twice daily + azithromycin 500 mg daily to complete a total of 5 days (2) Pre-eclampsia in puerperium Current Visit: Yes Status: Acute Plan to address problem: b/p 140's/90's Increased labetalol to 300 PO BID no cerebral symptoms of pre-e Continue monitoring blood pressure (3) delivery delivered Current Visit: No Status: Acute Plan to address problem: continue postop pathway encouraged increase in activity and use of ISS Anticipate d/c home tomorrow Subjective - Subjective Date of service: 06/04/22 Principal diagnosis: C/S delivered; Preeclampsia, pneumonia Patient reports: appetite normal, voiding normally, pain well controlled, flatus, ambulating normally, no dizzy ambulation, no nauseated : doing well, bottle feeding Objective - Vital Signs Latest vital signs: Vital Signs Temp Pulse Resp BP BP Pulse Ox Pulse Ox 06/04/22 01:33 18 06/04/22 00:33 20 06/04/22 00:27 98.0 F 73 18 140/90 100 06/03/22 22:11 87 18 144/94 100 06/03/22 22:10 18 06/03/22 20:00 100 06/03/22 16:54 98.2 F 89 136/89 06/03/22 11:05 98 F 18 140/96 98 06/03/22 10:26 101 H 98 06/03/22 10:21 102 H 99 06/03/22 10:16 107 H 100 06/03/22 10:11 105 H 98 06/03/22 10:06 108 H 99 06/03/22 10:01 112 H 99 06/03/22 09:59 146/84 06/03/22 09:56 104 H 99 06/03/22 09:51 106 H 100 06/03/22 09:50 100 H 146/84 06/03/22 09:46 109 H 100 06/03/22 09:41 96 H 99 06/03/22 09:36 104 H 100 06/03/22 09:31 104 H 99 06/03/22 09:26 99 H 100 06/03/22 09:21 105 H 99 06/03/22 09:16 104 H 99 06/03/22 09:11 92 H 100 06/03/22 09:06 100 H 100 06/03/22 09:01 92 H 99 06/03/22 08:56 90 100 06/03/22 08:51 102 H 100 06/03/22 08:49 92 H 145/97 06/03/22 08:46 94 H 100 06/03/22 08:41 100 H 100 06/03/22 08:36 96 H 100 06/03/22 08:31 89 99 06/03/22 08:26 87 100 06/03/22 08:21 89 98 06/03/22 08:16 99 H 100 Intake and Output 06/03/22 06/04/22 06/04/22 23:59 07:59 15:59 Intake Total 600 320 Output Total 400 Balance 200 320 Intake: Oral 360 Intake, Free Water 240 320 Output: Urine 400 Void 400 Other: Total, Intake Amount 360 Total, Output Amount 400 # Voids Void 1 1 - Exam Breasts: Present: normal Cardiovascular: Present: Regular rate Lungs: Present: Normal air movement Abdomen: Present: normal appearance, soft Vulva: both: normal Uterus: Present: normal, firm, fundal height below umbilicus Extremities: Present: normal Deep Tendon Reflex Grade: Normal +2 Incision: Present: normal, dry, intact
[2022-06-04] MEDS: AZITHROMYCIN/NS 500 MG/250 ML 500 MG/250 ML BAG IV SCH (08:37)
[2022-06-04] MEDS: FERROUS SULFATE 325 MG TAB PO SCH (09:35)
--- NOTE | 2022-06-04 13:14 | Progress Note ---
Assessment and Plan Cultures: 06/01/2022 urine culture: Usual skin rich A/P: 21-year-old female who was 38.6 weeks was admitted to the hospital on 06/01/2022 with elevated blood pressures. She underwent a on : #Right-sided pneumonia: Developed postoperatively. COVID-19 PCR is negative. On room air. # status: Underwent section on 06/01/2022 for preeclampsia. Recs: -Continue IV ceftriaxone, azithromycin while inpatient. Upon discharge, switch to PO Ceftin 500 mg twice daily + azithromycin 500 mg daily to complete a total of 5 days -continue incentive spirometry Will sign off. Please call with questions. Carolyn Bone MD, FACP, [facility] O: [phone] F: [phone] C: [phone] Subjective Date of service: 06/04/22 Principal diagnosis: C/S delivered; Preeclampsia, pneumonia Interval history: Denies fever, cough or sputum production. Says she had some wheezing earlier today. Objective - Exam Narrative Exam: Physical Exam: Constitutional: Alert, cooperative. No acute distress Head, Ears, Nose: Normocephalic, atraumatic. External ears, nose normal Eyes: Conjunctivae/corneas clear. No icterus. No ptosis. Neck: Supple, no meningeal signs Cardiovascular: S1, S2 + Respiratory: clear b/l GI: Soft, non-tender; bowel sounds normal. No peritoneal signs Musculoskeletal: No pedal edema, no cyanosis. Skin: No rash or abscess Hem/Lymphatic: No palpable cervical or supraclavicular nodes. No lymphangitis Psych: Mood ok. Affect normal Neurological: Awake, alert, oriented. No gross abnormality - Constitutional Vitals: Vital Signs Temp Pulse Resp BP Pulse Ox 98 F 68 20 120/94 100 06/04/22 11:45 06/04/22 11:45 06/04/22 11:45 06/04/22 11:45 06/04/22 11:45 Temperature -Last 24 Hours Temperature 98 F Temperature 97.9 F Temperature 98.0 F Temperature 98.2 F - Labs CBC & Chem 7: 06/02/22 21:58 06/01/22 12:41
[2022-06-04] MEDS: IBUPROFEN 800 MG TAB PO PRN ×2 (17:24→23:32)
[2022-06-04] MEDS ORDERED: ALBUTEROL 2.5 MG/3 ML NEBU IH ONE (18:33)
[2022-06-05] MEDS: MORPHINE 2 MG/1 ML INJ IV PRN (01:16)
[2022-06-05] MEDS: cefTRIAXone/NS 2 GM/100 ML 2 GM/100 ML BAG IV SCH (07:24)
[2022-06-05] MEDS: oxyCODONE /ACETAMINOPHEN 5-325MG TAB PO PRN (07:28)
[2022-06-05] MEDS: AZITHROMYCIN/NS 500 MG/250 ML 500 MG/250 ML BAG IV SCH (07:29)
--- NOTE | 2022-06-05 09:03 | Discharge Summary ---
Providers - Providers Date of Admission: 06/01/22 10:14 Date of discharge: 06/05/22 Attending physician: MATA KHAN MD 06/02/22 10:32 Consult to Director Biology [CONS] Routine Reason For Exam: 06/03/22 07:00 Consult to Physician [CONS] Routine Comment: Consulting Provider: MARISEL BLACKWELL Physician Instructions: Reason For Exam: pneumonia Primary care physician: MATA KHAN MD Hospitalization Reason for admission: section, other (Elevated blood pressures during pre-op visit. ) Delivery: Procedure: repeat low transverse Episiotomy: none Laceration: none Incision: normal, dry, intact Other procedures: none complications: other (Pneumonia, Pre-eclampsia) Discharge diagnosis: IUP at term delivered [place] baby: male Pertinent studies: Discussed with patient how to take a blood pressure at home, when to call the on-call provider with questions and concerns regarding her blood pressure, the need to continue antibiotics d/t diagnosis of pneumonia, and how to take her blood pressure medication. She denies TELLES, blurred vision, spots before her eyes, chest pain, shortness of breath, and upper abdominal pain. Hospital course: S: Pt doing well. Ambulating, voiding, passing flatus without difficulty. O: VSS. Afebrile. Blood pressure ranges this AM 120's/ 70-80's. H/H 9.4/27.9, asymptomatic anemia of delivery. Incision open to air, intact, no s/sx of infection and no drainage noted. Minimal vaginal bleeding. A: 21 y.o. s/p rpt , Pre-eclampisa, pneumonia. In good condition . P: Discharge home with instructions. Pt to schedule son's circumcision and her incision check in the office in 1 week. Condition at discharge: Good Disposition: 01 HOME / SELF CARE / HOMELESS - Discharge Diagnoses (1) Pneumonia Status: Acute Qualifiers: Laterality: right Lung location: lower lobe of lung (2) delivery delivered Status: Acute Comment: RTO 1 week postop (3) Pre-eclampsia in puerperium Status: Acute Plan - Discharge Medications Prescriptions: Azithromycin 500 mg PO BID #10 cefUROXime [Ceftin] 500 mg PO Q12H #10 Docusate Sodium [Colace CAP] 100 mg PO BID PRN #60 capsule PRN Reason: Constipation Docusate Sodium [Colace] 100 mg PO BID PRN #30 capsule PRN Reason: Constipation Lidocain2.5%/Prilocai2.5% [Emla] 5 gm TP ONCE #1 tube Ferrous Sulfate [Feosol 325 MG tab] 325 mg PO QDAY #90 tablet Ferrous Sulfate [Feosol 325 MG tab] 325 mg PO BID #90 tablet labetaloL [Labetalol 200mg TAB] 200 mg PO BID #60 tablet Ibuprofen [Motrin 800 MG tab] 800 mg PO Q6H PRN #30 tablet PRN Reason: Pain, Moderate (4-6) Ibuprofen [Motrin 800 MG tab] 800 mg PO TID PRN #30 tablet PRN Reason: Pain oxyCODONE /ACETAMINOPHEN [Percocet 5/325 mg] 1 - 2 tab PO Q4HR PRN #14 tablet PRN Reason: Pain - Provider Discharge Summary Activity: routine, no sex for 6 weeks, no heavy lifting 4 weeks, no strenuous exercise Diet: routine Instructions: routine Additional instructions: [] Smoking cessation referral if applicable(refer to patient education folder for contact #) [] Refer to [facility]'s [facility] Booklet Call your doctor immediately for: * Fever > 100.5 * Heavy vaginal bleeding ( >1 pad per hour) * Severe persistent headache * Shortness of breath * Reddened, hot, painful area to leg or breast * Drainage or odor from incision. * Keep incision clean and dry at all times and follow doctor's instructions regarding bathing/showering - Follow up plan Follow up: MATA KHAN MD [Primary Care Provider] - 7 Days (- Congratulations on the of your baby! - Thank you for allowing us to take care of you! - Please schedule your incision check and your son's circumcision in the office in 1 week. - You have been prescribed EMLA cream for your son's circumcision. Do not use this cream at home, but bring it with you to your son's circumcision appointment. - Please take all medications as prescribed. - If you develop the following, please call the on-call provider and come to [facility] ER for evaluation: Blood pressure greater than or equal to 160/100, a headache, blurred vision, spots before your eyes, feeling like you can not catch your breath, severe pain in your belly, or chest pain, or any of these symptom with or without your blood pressure being equal to or greater than 160/100. -Should you have any questions or concerns after discharge, please do not hesitate to call our office at . )
[2022-06-05] MEDS: FERROUS SULFATE 325 MG TAB PO SCH (10:32)
[2022-06-05] MEDS: IBUPROFEN 800 MG TAB PO PRN (11:13)
[2022-06-05 14:25] VITALS: BP 139/69
== END 2022-06-05 15:25 | disposition home or self-care (01) | DRG 765 ==
LOC: TRG 10:13 → APU 10:14 → TRG 14:20 → LD 15:23 → APU 06-02 07:59 → LD 06-02 11:20 → OB 06-03 11:04
PROVIDERS: ADMIT Student in an Organized Health Care Education/Training Program; ATTEND Student in an Organized Health Care Education/Training Program
PROC: 10D00Z1 Extraction of Products of Conception, Low, Open Approach (ICD-10-PCS; principal; 2022-06-02)
PROC: 3E0T3BZ Introduction of Anesthetic Agent into Peripheral Nerves and Plexi, Percutaneous Approach (ICD-10-PCS; 2022-06-02)
PROC: 3E0234Z Introduction of Serum, Toxoid and Vaccine into Muscle, Percutaneous Approach (ICD-10-PCS; 2022-06-03)
DX: O14.94 Unspecified pre-eclampsia, complicating childbirth (principal); J18.9 Pneumonia, unspecified organism; Z20.822 Contact with and (suspected) exposure to COVID-19; O98.82 Other maternal infectious and parasitic diseases complicating childbirth; O98.22 Gonorrhea complicating childbirth; A54.9 Gonococcal infection, unspecified; O98.32 Other infections with a predominantly sexual mode of transmission complicating childbirth; Z3A.38 38 weeks gestation of pregnancy; Z37.0 Single live birth; O99.53 Diseases of the respiratory system complicating the puerperium; Z23 Encounter for immunization; O90.81 Anemia of the puerperium; O34.211 Maternal care for low transverse scar from previous cesarean delivery; A60.00 Herpesviral infection of urogenital system, unspecified; O99.344 Other mental disorders complicating childbirth; F41.9 Anxiety disorder, unspecified; F32.A Depression, unspecified
CPT/HCPCS: 36415; 71045; 81001; 82565; 82570; 83615; 83735; 84112; 84156; 84450; 84460; 84550; 85014; 85018; 85027; 85461; 86850; 86870; 86900; 86901; 87086; G0378; J3490; J7060; J0330; J0456; J0690; J0696; J1885; J2250; J2270; J2704; J2790; J3010; J3475; J7120; J7121; U0003